=== PATIENT | male | born 1965 | race Caucasian/White ===

== ENCOUNTER 2023-01-02 06:05 | Inpatient (IN) | payer MEDICAID, OTHER ==
[~2023-01-02] VITALS: Ht 175.3 cm; Wt 81.6 kg
[2023-01-02 06:05] VITALS: BP 146/94
--- NOTE | 2023-01-02 06:10 | NUR ---
PT BIBA BLS TO ER BED 12.
--- NOTE | 2023-01-02 06:30 | NUR ---
Patient resting in bed, A/Ox4, chest rise and fall symmetrical, no s/s of distress.
[2023-01-02] MEDS ORDERED: NACL 0.9% 1,000 ML IV ONE (07:10)
[2023-01-02] MEDS ORDERED: PANTOPRAZOLE 40 MG INJ VIAL IVP ONE (07:10)
[2023-01-02] MEDS ORDERED: OCTREOTIDE ACETATE 100 MCG/ML VIAL IV ONE (07:10)
[2023-01-02] MEDS ORDERED: ONDANSETRON 4 MG/2 ML VIAL IVP ONE (07:10)
--- NOTE | 2023-01-02 07:26 | NUR ---
Change of shift report given to AM shift nurse Inderjit LE. AM shift nurse Inderjit RN verbalized understanding of report, no further questions.
[2023-01-02] MEDS ORDERED: OCTREOTIDE ACETATE 1.25 MG in NACL 0.9% 250 ML IV ONE (07:30)
--- NOTE | 2023-01-02 07:34 | NUR ---
RECEIVED PATIENT REPORT FROM REY CALIXTO FOR CONTINUITY OF CARE.
[2023-01-02] MEDS ORDERED: cefTRIAXone 1,000 MG VIAL ONE (07:38)
--- NOTE | 2023-01-02 07:45 | NUR ---
XR TECH AT BEDSIDE
[2023-01-02 08:14] LABS: BASOPHILS % (AUTO) 0.4 % (0.0-2.0); EOSINOPHILS % (AUTO) 0.9 % (0.0-4.0); HEMATOCRIT 24.7 % (36-52); HEMOGLOBIN 8.4 g/dL (12.0-18.0); LYMPHOCYTES # (AUTO) 0.3 K/uL (2.0-11.5); LYMPHOCYTES % (AUTO) 11.2 % (20.5-51.1); MEAN CORPUSCULAR HEMOGLOBIN 34 pg (27-31); MEAN CORPUSCULAR HGB CONC 34 g/dL (33-37); MEAN CORPUSCULAR VOLUME 100.7 fL (80-94); MONOCYTES # (AUTO) 0.3 K/uL (0.8-1.0); MONOCYTES % (AUTO) 9.4 % (1.7-9.3); NEUTROPHILS # (AUTO) 2.2 K/uL (1.8-7.7); NEUTROPHILS % (AUTO) 78.1 % (42.2-75.2); PLATELET COUNT (AUTO) 34 K/uL (140-450); RED BLOOD CELL COUNT(AUTO) 2.45 MIL/uL (4.20-6.10); RED CELL DISTRIBUTION WIDTH 16.2 % (11.6-13.7); WHITE BLOOD COUNT (AUTO) 2.9 K/uL (4.8-10.8)
[2023-01-02 08:17] LABS: PROTHROMBIN TIME 14.4 secs (10.8-13.4)
[2023-01-02 08:20] LABS: ALBUMIN 2.1 g/dL (3.4-5.0); ANION GAP 8.3 (8-16); CARBON DIOXIDE 26.4 mmol/L (21-32); CREATININE 0.8 mg/dL (0.6-1.3); POTASSIUM 4.7 mmol/L (3.5-5.1); TOTAL BILIRUBIN 3.1 mg/dL (0.0-1.0)
[2023-01-02 10:05] LABS: APPEARANCE,URINE CLEAR (CLEAR); BILIRUBIN,URINE NEGATIVE (NEGATIVE); BLOOD, URINE NEGATIVE (NEGATIVE); COLOR,URINE YELLOW (YELLOW); LEUKOCYTE ESTERASE ,URINE NEGATIVE (NEGATIVE); NITRITE, URINE NEGATIVE (NEGATIVE); UGLUCOSE NEGATIVE (NEGATIVE)
[2023-01-02 10:15] LABS: BARBITURATE, URINE NEGATIVE ng/ml (NEG <=200); BENZODIAZEPINE, URINE NEGATIVE ng/mL (NEG <=200)
[2023-01-02] MEDS ORDERED: ACETAMINOPHEN 325 MG TAB PO PRN (10:15)
[2023-01-02] MEDS ORDERED: MAG SULF 2000 MG/WATER PREMIX 50 ML IV PRN (10:15)
[2023-01-02] MEDS ORDERED: ONDANSETRON 4 MG/2 ML VIAL IVP PRN (10:15)
[2023-01-02] MEDS ORDERED: POTASSIUM CHLORIDE 10 MEQ TABER PO PRN (10:15)
[2023-01-02 10:16] LABS: CANNABINOID, URINE NEGATIVE ng/mL (NEG <=50); COCAINE, URINE POSITIVE ng/mL (NEG <=300); OPIATE, URINE NEGATIVE ng/mL (NEG <=2000); PHENCYCLIDINE SCREEN,URINE NEGATIVE ng/mL (NEG <=25)
[2023-01-02 10:58] LABS: CARBON DIOXIDE 24.9 mmol/L (21-32); POTASSIUM 4.6 mmol/L (3.5-5.1)
[2023-01-02 10:59] LABS: ANION GAP 6.7 (8-16); CREATININE 0.9 mg/dL (0.6-1.3)
[2023-01-02] MEDS: NACL 0.9% 1,000 ML IV SCH (10:59)
--- NOTE | 2023-01-02 10:59 | NUR ---
ALL SCHEDULED MEDS GIVEN. PT IS STABLE.
[2023-01-02 11:01] LABS: PROTHROMBIN TIME 14.9 secs (10.8-13.4)
[2023-01-02 11:32] LABS: AMYLASE 55 U/L (25-115); CHOL/HDL RATIO 2.1 (1-4.5); FREE T4 (FREE THYROXINE) 1.55 ng/dL (0.76-1.46); HDL CHOLESTEROL 33 mg/dL (40-60); LDL (CALC) 32 mg/dL (60-100); LIPASE 196 U/L (73-393); MAGNESIUM 1.6 mg/dL (1.8-2.4); PHOSPHORUS 2.6 mg/dL (2.5-4.9); TRIGLYCERIDES 18 mg/dL (30-150)
[2023-01-02] MEDS ORDERED: FURO-572 PO (11:42)
[2023-01-02] MEDS ORDERED: SPIR50TA PO (11:42)
--- NOTE | 2023-01-02 11:50 | NUR ---
ENDORSED PATIENT REPORT TO REY APPIAH FOR CONTINUITY OF CARE.
[2023-01-02 12:00] VITALS: BP 157/73
[2023-01-02] MEDS: HYDROcodone/APAP 7.5/325 MG 1 TAB PO PRN (14:21)
[2023-01-02 16:00] VITALS: BP 124/84
[2023-01-02] MEDS ORDERED: LACTULOSE 20 GM/30 ML UDC PO SCH (16:00)
--- NOTE | 2023-01-02 17:17 | NUR ---
ADMISSION OF A 57 YEAR OLD MALE UNDER THE CARE OF DOCTOR LUKE FOR GASTROINTESTINAL BLEEDING. PATIENT TO CONSULT BINGO ATTENDANT FOR FURTHER EVALUATION AND TREATMENT.
--- NOTE | 2023-01-02 17:51 | NUR ---
EDUCATION WITH PATIENT FIANCE AND PATIENT REGARDING DIAGNOSIS NEXT STEPS TO CONSULT SPECIALIST IN GASTROENTEROLOGY AND NOT MAKING BLEEDING WORSE BY TAKING FOOD TOO SOON. PATIENT ALSO WANTS PAIN MEDICATION. EDUCATION ABOUT 4 HOUR INTERVAL PRIOR TO NEXT PAIN MEDICATION. PATIENT AND FIANCE VERBALIZE UNDERSTANDING.
--- NOTE | 2023-01-02 19:29 | NUR ---
HANDOFF REPORT WITH REY GRIDER.
[2023-01-02 20:00] VITALS: BP 136/89
--- NOTE | 2023-01-02 21:20 | NUR ---
RECEIVED REPORT FROM NURSE GRIDER. PATIENT IN BED RESTING WITH BOTH EYES CLOSED ON ROOM AIR. NO S/S OF RESPIRATORY DISTRESS. BREATHING REGULAR NON LABORED. PATIENT ON SANDOSTATIN DRIP 125 MG IN NACL 0.9% 250 ML AT 10 ML/HR. SAFETY MEASURES IN PLACE. CALL LIGHT WITHIN REACH.
[2023-01-02] MEDS: LACTULOSE 20 GM/30 ML UDC PO SCH (21:46)
--- NOTE | 2023-01-02 21:46 | NUR ---
ADMINISTERED SCHEDULED DUE MEDICATIONS, TOLERATED WELL.
[2023-01-02] MEDS: DOCUSATE SODIUM 100 MG GELCAP PO SCH (21:47)
[2023-01-03 04:00] VITALS: BP 137/86
--- NOTE | 2023-01-03 05:05 | NUR ---
PER PATIENT HE HAD X3 BLOODY STOOL.
[2023-01-03] MEDS: NACL 0.9% 1,000 ML IV SCH (06:15)
--- NOTE | 2023-01-03 07:03 | NUR ---
receive the patient from the manager night rn in rm 112B aox4 with admitting diagnosis of GI bleed cirrhosis . still on NPO since midnight for EGD today . will continue to monitor
[2023-01-03 07:06] LABS: ANION GAP 10.3 (8-16); CARBON DIOXIDE 24.6 mmol/L (21-32); CREATININE 0.8 mg/dL (0.6-1.3); POTASSIUM 3.9 mmol/L (3.5-5.1)
[2023-01-03 07:07] LABS: BASOPHILS % (AUTO) 0.8 % (0.0-2.0); EOSINOPHILS # (AUTO) 0.1 K/uL (0-0.4); EOSINOPHILS % (AUTO) 3.8 % (0.0-4.0); HEMATOCRIT 23.8 % (36-52); HEMOGLOBIN 8.1 g/dL (12.0-18.0); LYMPHOCYTES # (AUTO) 0.4 K/uL (2.0-11.5); LYMPHOCYTES % (AUTO) 17.6 % (20.5-51.1); MEAN CORPUSCULAR HEMOGLOBIN 35 pg (27-31); MEAN CORPUSCULAR HGB CONC 34 g/dL (33-37); MEAN CORPUSCULAR VOLUME 101.6 fL (80-94); MONOCYTES # (AUTO) 0.2 K/uL (0.8-1.0); MONOCYTES % (AUTO) 8.5 % (1.7-9.3); NEUTROPHILS # (AUTO) 1.7 K/uL (1.8-7.7); NEUTROPHILS % (AUTO) 69.3 % (42.2-75.2); PLATELET COUNT (AUTO) 32 K/uL (140-450); RED BLOOD CELL COUNT(AUTO) 2.34 MIL/uL (4.20-6.10); RED CELL DISTRIBUTION WIDTH 16.4 % (11.6-13.7); WHITE BLOOD COUNT (AUTO) 2.5 K/uL (4.8-10.8)
[2023-01-03 07:19] LABS: MAGNESIUM 1.7 mg/dL (1.8-2.4); PHOSPHORUS 2.7 mg/dL (2.5-4.9)
--- NOTE | 2023-01-03 07:39 | NUR ---
GAVE REPORT TO MORNING SHIFT NURSE DAYNE FOR CONTINUITY OF CARE.
[2023-01-03 08:00] VITALS: BP 146/89
--- NOTE | 2023-01-03 08:45 | NUR ---
jigar sign the consent for EGD
[2023-01-03] MEDS ORDERED: FUROSEMIDE 20 MG TAB PO SCH (09:00)
[2023-01-03] MEDS ORDERED: LACTULOSE 20 GM/30 ML UDC PO SCH (09:00)
[2023-01-03] MEDS: PANTOPRAZOLE 40 MG INJ VIAL IVP SCH (10:26)
[2023-01-03] MEDS ORDERED: MIDAZOLAM 2 MG/2 ML VIAL ONE (11:06)
[2023-01-03] MEDS ORDERED: fentaNYL citrate 0.05 MG/ML VIAL ONE (11:06)
[2023-01-03] MEDS: MIDAZOLAM 2 MG/2 ML VIAL IVP ONE ×2 (11:37→12:09)
[2023-01-03] MEDS: fentaNYL citrate 0.05 MG/ML VIAL IVP ONE ×2 (11:38→12:07)
--- NOTE | 2023-01-03 11:45 | NUR ---
the patient went for EGD under md yeboah due to melena . md md yeboah did bands on 4 varices . hopefully this will stop rectal bleeding . patient hemoglobin 8.1
[2023-01-03] MEDS: SPIRONOLACTONE 50 MG TAB PO SCH (12:53)
[2023-01-03] MEDS: DOCUSATE SODIUM 100 MG GELCAP PO SCH ×2 (12:54→20:36)
[2023-01-03] MEDS: LACTULOSE 20 GM/30 ML UDC PO SCH ×3 (12:54→17:21)
[2023-01-03] MEDS: OCTREOTIDE ACETATE 1.25 MG in NACL 0.9% 250 ML IV SCH (14:25)
[2023-01-03 16:00] VITALS: BP 137/92
[2023-01-03] MEDS: FERROUS SULFATE 325 MG TABEC PO SCH (17:21)
--- NOTE | 2023-01-03 18:39 | NUR ---
will endorse to core carrier rn for continuity of care
[2023-01-03] MEDS: FUROSEMIDE 20 MG/2 ML VIAL IVP SCH (20:36)
--- NOTE | 2023-01-03 20:36 | NUR ---
ALL SCHEDULED DUE MEDICATIONS ADMINISTERED, TOLERATED WELL.
[2023-01-03] MEDS: PROPRANOLOL 20 MG TAB PO SCH (20:37)
--- NOTE | 2023-01-03 22:15 | NUR ---
PATIENT REFUSED SANDOSTATIN DRIP AND IVF. EXPLAINED THE RISK AND BENEFITS BUT STILL PATIENT REFUSED IT.
[2023-01-04] VITALS: BP 143/80
[2023-01-04] MEDS: NACL 0.9% 1,000 ML IV SCH (06:15)
[2023-01-04 07:11] LABS: MAGNESIUM 1.6 mg/dL (1.8-2.4); PHOSPHORUS 2.8 mg/dL (2.5-4.9)
[2023-01-04 07:14] LABS: ANION GAP 7.3 (8-16); CARBON DIOXIDE 28.5 mmol/L (21-32); CREATININE 0.9 mg/dL (0.6-1.3); POTASSIUM 3.8 mmol/L (3.5-5.1)
[2023-01-04 07:18] LABS: BASOPHILS % (AUTO) 0.7 % (0.0-2.0); EOSINOPHILS # (AUTO) 0.1 K/uL (0-0.4); EOSINOPHILS % (AUTO) 3.5 % (0.0-4.0); HEMATOCRIT 23.5 % (36-52); HEMOGLOBIN 8.1 g/dL (12.0-18.0); LYMPHOCYTES # (AUTO) 0.3 K/uL (2.0-11.5); LYMPHOCYTES % (AUTO) 10.2 % (20.5-51.1); MEAN CORPUSCULAR HEMOGLOBIN 35 pg (27-31); MEAN CORPUSCULAR HGB CONC 34 g/dL (33-37); MEAN CORPUSCULAR VOLUME 101.1 fL (80-94); MONOCYTES # (AUTO) 0.3 K/uL (0.8-1.0); MONOCYTES % (AUTO) 10.5 % (1.7-9.3); NEUTROPHILS % (AUTO) 75.1 % (42.2-75.2); PLATELET COUNT (AUTO) 34 K/uL (140-450); RED BLOOD CELL COUNT(AUTO) 2.33 MIL/uL (4.20-6.10); RED CELL DISTRIBUTION WIDTH 16.1 % (11.6-13.7); WHITE BLOOD COUNT (AUTO) 2.6 K/uL (4.8-10.8)
[2023-01-04 08:00] VITALS: BP 145/83
[2023-01-04] MEDS: FERROUS SULFATE 325 MG TABEC PO SCH ×2 (08:36→17:51)
[2023-01-04] MEDS: DOCUSATE SODIUM 100 MG GELCAP PO SCH ×2 (08:37→21:11)
[2023-01-04] MEDS: PROPRANOLOL 20 MG TAB PO SCH ×2 (08:38→21:11)
[2023-01-04] MEDS: SPIRONOLACTONE 50 MG TAB PO SCH (08:38)
[2023-01-04] MEDS: PANTOPRAZOLE 40 MG INJ VIAL IVP SCH (08:39)
[2023-01-04] MEDS: LACTULOSE 20 GM/30 ML UDC PO SCH ×3 (08:40→17:51)
[2023-01-04] MEDS: FUROSEMIDE 20 MG/2 ML VIAL IVP SCH ×2 (08:41→21:11)
--- NOTE | 2023-01-04 09:36 | NUR ---
PATIENT HAS BEEN SCREENED AND CATEGORIZED MODERATE NUTRITION RISK. PATIENT WILL BE SEEN WITHIN 3-5 DAYS OF ADMISSION. 01/02/23-01/07/[address]
[2023-01-04] MEDS: OCTREOTIDE ACETATE 1.25 MG in NACL 0.9% 250 ML IV SCH (12:00)
[2023-01-04 16:00] VITALS: BP 153/80
--- NOTE | 2023-01-04 19:15 | NUR ---
PATIENT RESTING IN BED, AAO x4, NO C/O PAIN/DISCOMFORT AT THIS TIME. RESPIRATIONS EVEN AND UL. ALL NEEDS MET. SAFETY MEASURES IN PLACE, CALL LIGHT IN REACH. ENDORSED TO PM NURSE FOR CONTINUITY OF CARE.
--- NOTE | 2023-01-04 19:30 | NUR ---
RECEIVED REPORT FROM DAY SHIFT NURSE FOR CONTINUITY OF CARE. PATIENT IS A&O X4. PATIENT IS ON ROOM AIR, BREATHING IS NORMAL WITH SYMMETRICAL RISE AND FALL OF CHEST. PATIENT'S IV IS A 20G RAC & 20G LAC, RUNNING OCTREOTIDE ACETATE IN NACL @ 10ML. PATIENT IS SLEEPING WITH COVERS PULLED UP OVER HEAD. BED IS IN LOWEST POSITION, WHEELS LOCKED, CALL LIGHT IN PLACE. WILL CONTINUE TO OBSERVE PATIENT.
[2023-01-04 20:00] VITALS: BP 132/96
--- NOTE | 2023-01-05 04:30 | NUR ---
PATIENT HAS BEEN SLEEPING THROUGHOUT THE NIGHT, LYING SEMI-FOWLERS. BREATHING IS NORMAL WITH SYMMETRICAL RISE AND FALL OF CHEST. WILL CONTINUE TO OBSERVE PATIENT.
[2023-01-05] MEDS: NACL 0.9% 1,000 ML IV SCH (06:15)
[2023-01-05 07:13] LABS: BASOPHILS % (AUTO) 0.9 % (0.0-2.0); EOSINOPHILS # (AUTO) 0.1 K/uL (0-0.4); EOSINOPHILS % (AUTO) 3.1 % (0.0-4.0); HEMOGLOBIN 8.2 g/dL (12.0-18.0); LYMPHOCYTES # (AUTO) 0.4 K/uL (2.0-11.5); MEAN CORPUSCULAR HEMOGLOBIN 35 pg (27-31); MEAN CORPUSCULAR HGB CONC 34 g/dL (33-37); MEAN CORPUSCULAR VOLUME 101.2 fL (80-94); MONOCYTES # (AUTO) 0.3 K/uL (0.8-1.0); MONOCYTES % (AUTO) 10.4 % (1.7-9.3); NEUTROPHILS # (AUTO) 1.9 K/uL (1.8-7.7); NEUTROPHILS % (AUTO) 71.6 % (42.2-75.2); PLATELET COUNT (AUTO) 38 K/uL (140-450); RED BLOOD CELL COUNT(AUTO) 2.37 MIL/uL (4.20-6.10); RED CELL DISTRIBUTION WIDTH 16.2 % (11.6-13.7); WHITE BLOOD COUNT (AUTO) 2.6 K/uL (4.8-10.8)
[2023-01-05 07:24] LABS: ANION GAP 9.6 (8-16); CARBON DIOXIDE 28.9 mmol/L (21-32); POTASSIUM 3.5 mmol/L (3.5-5.1)
[2023-01-05 07:29] LABS: MAGNESIUM 1.5 mg/dL (1.8-2.4)
--- NOTE | 2023-01-05 07:32 | NUR ---
ENDORSED TO DAY SHIFT NURSE ADZE FOR CONTINUITY OF CARE. PATIENT IS STABLE.
[2023-01-05 08:00] VITALS: BP 126/69
[2023-01-05] MEDS: FERROUS SULFATE 325 MG TABEC PO SCH ×2 (08:00→17:00)
[2023-01-05] MEDS: DOCUSATE SODIUM 100 MG GELCAP PO SCH (09:19)
[2023-01-05] MEDS: SPIRONOLACTONE 50 MG TAB PO SCH (09:19)
[2023-01-05] MEDS: PROPRANOLOL 20 MG TAB PO SCH ×2 (09:19→21:05)
[2023-01-05] MEDS: FUROSEMIDE 20 MG/2 ML VIAL IVP SCH ×2 (09:20→21:05)
[2023-01-05] MEDS: PANTOPRAZOLE 40 MG INJ VIAL IVP SCH (09:20)
[2023-01-05] MEDS: LACTULOSE 20 GM/30 ML UDC PO SCH ×3 (09:20→17:00)
[2023-01-05 16:00] VITALS: BP 121/80
--- NOTE | 2023-01-05 19:30 | NUR ---
RECEIVED REPORT FROM DAY SHIFT RN FOR CONTINUITY OF CARE. PT IS AWAKE AND ALERT. PT NOT IN ANY DISTRESS. PT IS AMBULATORY WITH STEADY GATE. PT HAS RIGHT AND LEFT AC 20 GAUGE. SALINE LOCK. POC OF CARE DISCUSSED. WILL CONTINUE TO MONITOR THE PT.
[2023-01-05 20:00] VITALS: BP 130/73
--- NOTE | 2023-01-05 21:05 | NUR ---
SCHEDULE MEDICATIONS GIVEN. NO ADVERSE REACTION NOTED. WILL CONTINUE TO MONITOR THE PT.
[2023-01-05] MEDS: HYDROcodone/APAP 7.5/325 MG 1 TAB PO PRN (23:33)
--- NOTE | 2023-01-06 01:56 | NUR ---
PT SLEEPING IN BED NOT IN ANY DISTRESS. BREATHING EVEN AND UNLABORED. CALL LIGHT WITHIN REACH.
--- NOTE | 2023-01-06 05:15 | NUR ---
CHECKED ON PT. PT IS SLEEPING COMFORTABLE IN BED. PT IS NOT IN ANY DISTRESS. BREATHING EVEN AND UNLABORED. WILL CONTINUE TO MONITOR THE PT.
--- NOTE | 2023-01-06 07:08 | NUR ---
ENDORSED PT TO DAY SHIFT RN FOR CONTINUITY OF CARE. PT IS STABLE.
[2023-01-06 07:38] LABS: BASOPHILS % (AUTO) 0.8 % (0.0-2.0); EOSINOPHILS # (AUTO) 0.1 K/uL (0-0.4); HEMATOCRIT 22.5 % (36-52); HEMOGLOBIN 7.8 g/dL (12.0-18.0); LYMPHOCYTES # (AUTO) 0.4 K/uL (2.0-11.5); LYMPHOCYTES % (AUTO) 16.5 % (20.5-51.1); MEAN CORPUSCULAR HEMOGLOBIN 35 pg (27-31); MEAN CORPUSCULAR HGB CONC 35 g/dL (33-37); MEAN CORPUSCULAR VOLUME 100.4 fL (80-94); MONOCYTES # (AUTO) 0.3 K/uL (0.8-1.0); MONOCYTES % (AUTO) 13.2 % (1.7-9.3); NEUTROPHILS # (AUTO) 1.6 K/uL (1.8-7.7); NEUTROPHILS % (AUTO) 65.5 % (42.2-75.2); PLATELET COUNT (AUTO) 39 K/uL (140-450); RED BLOOD CELL COUNT(AUTO) 2.24 MIL/uL (4.20-6.10); RED CELL DISTRIBUTION WIDTH 16.6 % (11.6-13.7); WHITE BLOOD COUNT (AUTO) 2.5 K/uL (4.8-10.8)
[2023-01-06 07:47] LABS: ANION GAP 7.9 (8-16); CARBON DIOXIDE 27.6 mmol/L (21-32); CREATININE 0.9 mg/dL (0.6-1.3); POTASSIUM 3.5 mmol/L (3.5-5.1)
[2023-01-06 08:00] VITALS: BP 109/65
[2023-01-06 08:06] LABS: MAGNESIUM 1.5 mg/dL (1.8-2.4); PHOSPHORUS 2.3 mg/dL (2.5-4.9)
[2023-01-06] MEDS: FUROSEMIDE 20 MG/2 ML VIAL IVP SCH ×2 (08:53→20:24)
[2023-01-06] MEDS: LACTULOSE 20 GM/30 ML UDC PO SCH ×3 (08:53→17:00)
[2023-01-06] MEDS: PANTOPRAZOLE 40 MG INJ VIAL IVP SCH (08:53)
[2023-01-06] MEDS: PROPRANOLOL 20 MG TAB PO SCH ×2 (08:53→20:23)
[2023-01-06] MEDS: FERROUS SULFATE 325 MG TABEC PO SCH ×2 (08:54→17:00)
[2023-01-06] MEDS: SPIRONOLACTONE 50 MG TAB PO SCH (08:54)
--- NOTE | 2023-01-06 15:15 | NUR ---
01/06/23 RD INITIAL ASSESSMENT COMPLETED PLEASE REFER TO NUTRITION ASSESSMENT UNDER CARE ACTIVITY FOR ESTIMATED NUTRITIONAL NEEDS. 1. RECOMMEND NA2GM DIET TOLERATED D/T PT WITH ASCITES 2. MONITOR PO INTAKE AND NUTRITION RELATED LAB VALUES 3. RD TO FOLLOW-UP 7 DAYS, LOW RISK REVIEWED BY MICHAEL RIZVI RD
[2023-01-06 16:00] VITALS: BP 96/55
--- NOTE | 2023-01-06 19:20 | NUR ---
RECEIVED PT FROM DAY RN FOR CONTINUITY OF CARE. PT STANDING BESIDE HIS BED, A&O X 4, ON ROOM AIR, BREATHING EVEN AND UNLABORED. NO RESPIRATORY DISTRESS NOTED. FAMILY AT BEDSIDE. SKIN WARM DRY AND INTACT. ABDOMEN DISTENDED. IV ON R AND L AC G20,SL. ALL PRECAUTIONS IN PLACE. CALL LIGHT WITHIN REACH. WILL CONTINUE TO MONITOR.
--- NOTE | 2023-01-06 19:28 | NUR ---
PATIENT SCHEDULED FOR PARACENTESIS TODAY BUT UNABLE TO HAVE THE PROCEDURE DONE DUE TO PLATELET WAS NOT AVAILABLE. PER RADIOLOGIST PARACENTESIS WILL BE DONE TOMORROW. PATIENT AGREEABLE. STABLE AT THIS TIME.
[2023-01-06] MEDS: HYDROcodone/APAP 7.5/325 MG 1 TAB PO PRN (20:23)
--- NOTE | 2023-01-06 20:29 | NUR ---
SCHEDULED MEDICATIONS GIVEN. NO ADVERSE REACTION NOTED.PROPANALOL NOT GIVEN DUE TO LOW BP. WILL CONTINUE TO MONITOR THE PT.
--- NOTE | 2023-01-06 23:18 | NUR ---
PT IS SLEEPING COMFORTABLY IN BED. PT IS NOT IN ANY DISTRESS. BREATHING EVEN AND UNLABORED. WILL CONTINUE TO MONITOR THE PT.
[2023-01-07] VITALS: BP 93/66
[2023-01-07] MEDS ORDERED: LANSOPRAZOLE 30 MG CAPDR PO SCH (06:30)
--- NOTE | 2023-01-07 07:04 | NUR ---
PT IS STABLE. NO ACUTE EVENTS THROUGHOUT THE NIGHT.NO S/SX OF DISTRESS NOTED. ALL NEEDS ATTENDED. NO COMPLAINS AT THIS MOMENT.ALL PRECAUTIONS IN PLACE. CALL LIGHT WITHIN REACH. WILL ENDORSE TO DAY SHIFT RN.
[2023-01-07 07:28] LABS: BASOPHILS % (AUTO) 0.6 % (0.0-2.0); EOSINOPHILS # (AUTO) 0.1 K/uL (0-0.4); HEMATOCRIT 22.3 % (36-52); HEMOGLOBIN 7.7 g/dL (12.0-18.0); LYMPHOCYTES # (AUTO) 0.4 K/uL (2.0-11.5); LYMPHOCYTES % (AUTO) 13.2 % (20.5-51.1); MEAN CORPUSCULAR HEMOGLOBIN 35 pg (27-31); MEAN CORPUSCULAR HGB CONC 35 g/dL (33-37); MEAN CORPUSCULAR VOLUME 101.8 fL (80-94); MONOCYTES # (AUTO) 0.4 K/uL (0.8-1.0); MONOCYTES % (AUTO) 15.3 % (1.7-9.3); NEUTROPHILS # (AUTO) 1.9 K/uL (1.8-7.7); NEUTROPHILS % (AUTO) 66.9 % (42.2-75.2); PLATELET COUNT (AUTO) 42 K/uL (140-450); RED BLOOD CELL COUNT(AUTO) 2.19 MIL/uL (4.20-6.10); RED CELL DISTRIBUTION WIDTH 16.9 % (11.6-13.7); WHITE BLOOD COUNT (AUTO) 2.9 K/uL (4.8-10.8)
[2023-01-07 07:36] LABS: ANION GAP 8.9 (8-16); CARBON DIOXIDE 27.7 mmol/L (21-32); POTASSIUM 3.6 mmol/L (3.5-5.1)
[2023-01-07 07:56] LABS: MAGNESIUM 1.6 mg/dL (1.8-2.4); PHOSPHORUS 2.9 mg/dL (2.5-4.9)
[2023-01-07 08:00] VITALS: BP 93/66
[2023-01-07] MEDS: LACTULOSE 20 GM/30 ML UDC PO SCH ×2 (09:00→13:00)
[2023-01-07] MEDS: SPIRONOLACTONE 50 MG TAB PO SCH (10:38)
[2023-01-07] MEDS: FUROSEMIDE 20 MG/2 ML VIAL IVP SCH (10:38)
[2023-01-07] MEDS: PROPRANOLOL 20 MG TAB PO SCH (10:38)
[2023-01-07] MEDS: FERROUS SULFATE 325 MG TABEC PO SCH (10:39)
[2023-01-07] MEDS ORDERED: ALBUMIN HUMAN 25% 100 ML IV SCH (12:00)
[2023-01-07] MEDS ORDERED: PROPRANOLOL 20 MG TAB PO SCH (13:00)
--- NOTE | 2023-01-07 15:13 | NUR ---
DC PLANNING ASSESSMENT COMPLETE SEE ASSESSMENT FOR DETAILS PT REPORTS TENTATIVE DC PLAN TO RETURN HOME WITH KATHERINE GARZAASHIA SUE, PROVIDING TRANSPORTATION, WHEN MEDICALLY STABLE. Addendum: 01/07/23 at 1514 by Cristy Duarte SS Amended: Links added.
[2023-01-07] MEDS ORDERED: LANS30EC68 PO (15:37)
[2023-01-07] MEDS ORDERED: FER325 PO (15:37)
[2023-01-07] MEDS ORDERED: FURO40TA9 PO (15:37)
[2023-01-07] MEDS ORDERED: LACT10SO11 PO (15:37)
[2023-01-07] MEDS ORDERED: SPIR50TA PO (15:37)
[2023-01-07] MEDS ORDERED: PROP20TA29 PO (15:37)
[2023-01-07 16:08] VITALS: BP 110/78
--- NOTE | 2023-01-07 17:30 | NUR ---
PATIENT DISCHARGED HOME. STABLE UPON DISCHARGE.
[2023-01-08] MEDS ORDERED: FUROSEMIDE 40 MG TAB PO SCH (09:00)
[2023-01-09 03:33] LABS: ALBUMIN,BODY FLUID 0.3 g/dL
== END 2023-01-07 17:40 | disposition home or self-care (01) | DRG 280 ==
LOC: MED 06:05 → MTU 10:15
PROC: 06L38CZ Occlusion of Esophageal Vein with Extraluminal Device, Via Natural or Artificial Opening Endoscopic (ICD-10-PCS; principal; 2023-01-03 11:00)
PROC: 0W9G3ZZ Drainage of Peritoneal Cavity, Percutaneous Approach (ICD-10-PCS; 2023-01-07)
PROC: BW40ZZZ Ultrasonography of Abdomen (ICD-10-PCS; 2023-01-07)
PROC: 30233R1 Transfusion of Nonautologous Platelets into Peripheral Vein, Percutaneous Approach (ICD-10-PCS; 2023-01-07)
DX: K70.31 Alcoholic cirrhosis of liver with ascites (principal); E43 Unspecified severe protein-calorie malnutrition; J90 Pleural effusion, not elsewhere classified; K76.82 Hepatic encephalopathy; I85.10 Secondary esophageal varices without bleeding; D63.8 Anemia in other chronic diseases classified elsewhere; K76.6 Portal hypertension; K92.0 Hematemesis; E83.42 Hypomagnesemia; Z68.26 Body mass index [BMI] 26.0-26.9, adult; F19.10 Other psychoactive substance abuse, uncomplicated; Z20.822 Contact with and (suspected) exposure to COVID-19; B19.20 Unspecified viral hepatitis C without hepatic coma; K92.2 Gastrointestinal hemorrhage, unspecified; K31.89 Other diseases of stomach and duodenum; Z91.199 Patient's noncompliance with other medical treatment and regimen due to unspecified reason; Z59.7 Insufficient social insurance and welfare support
CPT/HCPCS: 36415; 49083; 71045; 76604; 76700; 80048; 80053; 80305; 81003; 82105; 82140; 82150; 83036; 83605; 83690; 83735; 83880; 84100; 84439; 84443; 84484; 85025; 85610; 85730; 86886; 86900; 86901; 87040; 87070; 87075; 87081; 87205; 93005; 96374; 96375; 99291; C9113; J0696; J1940; J2001; J2250; J2354; J2405; J3010; J3475; J7030; P9035; P9046; Q0092

== ENCOUNTER 2023-01-23 16:51 | Emergency (ER) | payer MEDICAID ==
[~2023-01-23] VITALS: Ht 172.7 cm; Wt 75.3 kg
[~2023-01-23 16:51] MED LIST: FER325 PO; FURO-572 PO; FURO40TA9 PO; LACT10SO11 PO; LANS30EC68 PO; PROP20TA29 PO; SPIR50TA PO
[2023-01-23 17:06] VITALS: BP 145/67
--- NOTE | 2023-01-23 17:47 | NUR ---
PT WC ASSISTED TO BED 1
== END 2023-01-23 19:01 | disposition home or self-care (01) ==
LOC: MED 16:51
DX: K70.31 Alcoholic cirrhosis of liver with ascites (principal); E11.9 Type 2 diabetes mellitus without complications; I10 Essential (primary) hypertension; Z79.899 Other long term (current) drug therapy
CPT/HCPCS: 99281

== ENCOUNTER 2023-01-27 11:52 | Inpatient (IN) | payer MEDICAID ==
[~2023-01-27] VITALS: Ht 175.3 cm; Wt 88.5 kg
[2023-01-27 12:14] VITALS: BP 138/78
[2023-01-27 17:13] LABS: BASOPHILS % (AUTO) 0.4 % (0.0-2.0); EOSINOPHILS # (AUTO) 0.1 K/uL (0-0.4); HEMATOCRIT 29.3 % (36-52); HEMOGLOBIN 9.7 g/dL (12.0-18.0); LYMPHOCYTES # (AUTO) 0.3 K/uL (2.0-11.5); LYMPHOCYTES % (AUTO) 10.5 % (20.5-51.1); MEAN CORPUSCULAR HEMOGLOBIN 32 pg (27-31); MEAN CORPUSCULAR HGB CONC 33 g/dL (33-37); MEAN CORPUSCULAR VOLUME 97.8 fL (80-94); MONOCYTES # (AUTO) 0.2 K/uL (0.8-1.0); NEUTROPHILS # (AUTO) 2.1 K/uL (1.8-7.7); NEUTROPHILS % (AUTO) 79.1 % (42.2-75.2); PLATELET COUNT (AUTO) 36 K/uL (140-450); RED BLOOD CELL COUNT(AUTO) 2.99 MIL/uL (4.20-6.10); WHITE BLOOD COUNT (AUTO) 2.6 K/uL (4.8-10.8)
[2023-01-27 17:39] LABS: ALBUMIN 2.3 g/dL (3.4-5.0); ANION GAP 5.5 (8-16); CARBON DIOXIDE 28.2 mmol/L (21-32); CREATININE 0.8 mg/dL (0.6-1.3); POTASSIUM 3.7 mmol/L (3.5-5.1); TOTAL BILIRUBIN 2.7 mg/dL (0.0-1.0)
[2023-01-27] MEDS ORDERED: DOCUSATE SODIUM 100 MG GELCAP PO PRN (18:55)
[2023-01-27] MEDS ORDERED: ACETAMINOPHEN 325 MG TAB PO PRN (18:55)
[2023-01-27] MEDS ORDERED: POTASSIUM CHLORIDE 10 MEQ TABER PO PRN (18:55)
[2023-01-27] MEDS ORDERED: LORazepam 2 MG/ML VIAL IVP PRN (18:55)
[2023-01-27] MEDS ORDERED: MORPHINE SULFATE 2 MG/ML SYR IVP PRN (18:55)
[2023-01-27] MEDS ORDERED: MAG SULF 2000 MG/WATER PREMIX 50 ML IV PRN (18:55)
[2023-01-27] MEDS ORDERED: ONDANSETRON 4 MG/2 ML VIAL IVP PRN (18:55)
[2023-01-27 19:12] LABS: APPEARANCE,URINE CLEAR (CLEAR); BILIRUBIN,URINE 1+ (NEGATIVE); BLOOD, URINE TRACE-I (NEGATIVE); COLOR,URINE YELLOW (YELLOW); LEUKOCYTE ESTERASE ,URINE NEGATIVE (NEGATIVE); NITRITE, URINE NEGATIVE (NEGATIVE); UGLUCOSE NEGATIVE (NEGATIVE)
[2023-01-27 19:26] LABS: RBC,URINE 0-5 /HPF (0-5); WBC,URINE 0-5 /HPF (0-5)
[2023-01-28] VITALS: BP 138/91
[2023-01-28] MEDS: ZOLPIDEM 10 MG TAB PO PRN (01:13)
[2023-01-28 05:58] LABS: BASOPHILS % (AUTO) 0.4 % (0.0-2.0); EOSINOPHILS # (AUTO) 0.1 K/uL (0-0.4); EOSINOPHILS % (AUTO) 2.4 % (0.0-4.0); HEMATOCRIT 27.6 % (36-52); HEMOGLOBIN 9.3 g/dL (12.0-18.0); LYMPHOCYTES # (AUTO) 0.3 K/uL (2.0-11.5); LYMPHOCYTES % (AUTO) 12.1 % (20.5-51.1); MEAN CORPUSCULAR HEMOGLOBIN 33 pg (27-31); MEAN CORPUSCULAR HGB CONC 34 g/dL (33-37); MEAN CORPUSCULAR VOLUME 97.2 fL (80-94); MONOCYTES # (AUTO) 0.2 K/uL (0.8-1.0); MONOCYTES % (AUTO) 9.4 % (1.7-9.3); NEUTROPHILS % (AUTO) 75.7 % (42.2-75.2); PLATELET COUNT (AUTO) 33 K/uL (140-450); RED BLOOD CELL COUNT(AUTO) 2.84 MIL/uL (4.20-6.10); RED CELL DISTRIBUTION WIDTH 14.9 % (11.6-13.7); WHITE BLOOD COUNT (AUTO) 2.6 K/uL (4.8-10.8)
[2023-01-28 06:00] VITALS: BP 130/79
[2023-01-28 06:04] LABS: ANION GAP 7.9 (8-16); CARBON DIOXIDE 23.9 mmol/L (21-32); CREATININE 0.7 mg/dL (0.6-1.3); POTASSIUM 3.8 mmol/L (3.5-5.1)
[2023-01-28] MEDS ORDERED: DEXTROSE 50% 50 ML SYR IVP PRN (07:40)
[2023-01-28] MEDS ORDERED: INSULIN LISPRO SLIDING SCALE 100 UNITS/ML VIAL SUBQ PRN (07:40)
[2023-01-28 08:00] VITALS: BP 115/81
[2023-01-28] MEDS: FERROUS SULFATE 325 MG TABEC PO SCH ×2 (08:43→17:56)
[2023-01-28] MEDS: SPIRONOLACTONE 50 MG TAB PO SCH (08:45)
[2023-01-28] MEDS: LACTULOSE 20 GM/30 ML UDC PO SCH ×3 (08:46→17:56)
[2023-01-28] MEDS: FUROSEMIDE 40 MG TAB PO SCH (08:46)
[2023-01-28] MEDS: PROPRANOLOL 20 MG TAB PO SCH ×3 (08:48→17:57)
[2023-01-28 12:00] VITALS: BP 141/96
[2023-01-28] MEDS: BLOOD GLUCOSE MONITORING 1 DEV DEV FS SCH ×3 (12:12→21:20)
[2023-01-28 12:50] LABS: PROTHROMBIN TIME 13.3 secs (10.8-13.4)
[2023-01-28 16:00] VITALS: BP 131/90
[2023-01-28 20:00] VITALS: BP 118/77
[2023-01-29] VITALS (7 sets, daily range): BP systolic 112–151; BP diastolic 64–92
[2023-01-29 05:22] LABS: BASOPHILS % (AUTO) 0.5 % (0.0-2.0); EOSINOPHILS # (AUTO) 0.1 K/uL (0-0.4); EOSINOPHILS % (AUTO) 3.4 % (0.0-4.0); HEMATOCRIT 27.2 % (36-52); HEMOGLOBIN 9.3 g/dL (12.0-18.0); LYMPHOCYTES # (AUTO) 0.4 K/uL (2.0-11.5); LYMPHOCYTES % (AUTO) 11.8 % (20.5-51.1); MEAN CORPUSCULAR HEMOGLOBIN 33 pg (27-31); MEAN CORPUSCULAR HGB CONC 34 g/dL (33-37); MEAN CORPUSCULAR VOLUME 96.4 fL (80-94); MONOCYTES # (AUTO) 0.4 K/uL (0.8-1.0); MONOCYTES % (AUTO) 11.8 % (1.7-9.3); NEUTROPHILS # (AUTO) 2.5 K/uL (1.8-7.7); NEUTROPHILS % (AUTO) 72.5 % (42.2-75.2); PLATELET COUNT (AUTO) 39 K/uL (140-450); RED BLOOD CELL COUNT(AUTO) 2.82 MIL/uL (4.20-6.10); RED CELL DISTRIBUTION WIDTH 14.8 % (11.6-13.7); WHITE BLOOD COUNT (AUTO) 3.5 K/uL (4.8-10.8)
[2023-01-29 05:35] LABS: ANION GAP 6.6 (8-16); CARBON DIOXIDE 26.3 mmol/L (21-32); CREATININE 0.8 mg/dL (0.6-1.3); POTASSIUM 3.9 mmol/L (3.5-5.1)
[2023-01-29] MEDS: BLOOD GLUCOSE MONITORING 1 DEV DEV FS SCH ×2 (07:30→11:40)
[2023-01-29] MEDS: PROPRANOLOL 20 MG TAB PO SCH ×3 (08:57→17:37)
[2023-01-29] MEDS: FUROSEMIDE 40 MG TAB PO SCH (08:58)
[2023-01-29] MEDS: LACTULOSE 20 GM/30 ML UDC PO SCH ×3 (08:58→17:00)
[2023-01-29] MEDS: FERROUS SULFATE 325 MG TABEC PO SCH ×2 (08:58→17:37)
[2023-01-29] MEDS: SPIRONOLACTONE 50 MG TAB PO SCH (08:58)
[2023-01-29] MEDS ORDERED: LIDOCAINE MPF 1% 5 ML ONE (13:56)
[2023-01-29] MEDS: FUROSEMIDE 20 MG/2 ML VIAL IVP SCH (20:07)
[2023-01-29 20:29] LABS: APPEARANCE,SPUN,BODY FLUID HAZY (CLEAR); APPEARANCE,UNSPUN,BODY FLUID CLOUDY (CLEAR); SPECIMENTYPE,BODY FLUID ASCITES
[2023-01-29 20:30] LABS: COLOR,BODY FLUID YELLOW (LT YELLOW); GLUCOSE,BODY FLUID 118 mg/dL; TOTAL VOLUME,BODY FLUID 3375 mL
[2023-01-29 20:44] LABS: WBC, BODY FLUID 2 /cu. mm.
[2023-01-29 21:18] LABS: RBC, BODY FLUID 288 /cu. mm.
[2023-01-29] MEDS: ZOLPIDEM 10 MG TAB PO PRN (21:29)
[2023-01-30] VITALS: BP 121/67
[2023-01-30 04:00] VITALS: BP 101/68
[2023-01-30 05:12] LABS: BASOPHILS % (AUTO) 0.3 % (0.0-2.0); EOSINOPHILS # (AUTO) 0.1 K/uL (0-0.4); EOSINOPHILS % (AUTO) 2.8 % (0.0-4.0); HEMATOCRIT 28.9 % (36-52); HEMOGLOBIN 9.8 g/dL (12.0-18.0); LYMPHOCYTES # (AUTO) 0.4 K/uL (2.0-11.5); LYMPHOCYTES % (AUTO) 9.4 % (20.5-51.1); MEAN CORPUSCULAR HEMOGLOBIN 32 pg (27-31); MEAN CORPUSCULAR HGB CONC 34 g/dL (33-37); MEAN CORPUSCULAR VOLUME 95.5 fL (80-94); MONOCYTES # (AUTO) 0.6 K/uL (0.8-1.0); MONOCYTES % (AUTO) 13.8 % (1.7-9.3); NEUTROPHILS # (AUTO) 3.4 K/uL (1.8-7.7); NEUTROPHILS % (AUTO) 73.7 % (42.2-75.2); PLATELET COUNT (AUTO) 55 K/uL (140-450); RED BLOOD CELL COUNT(AUTO) 3.03 MIL/uL (4.20-6.10); WHITE BLOOD COUNT (AUTO) 4.7 K/uL (4.8-10.8)
[2023-01-30 06:01] LABS: ANION GAP 7.9 (8-16); CARBON DIOXIDE 26.7 mmol/L (21-32); CREATININE 0.9 mg/dL (0.6-1.3); POTASSIUM 3.6 mmol/L (3.5-5.1)
[2023-01-30 08:00] VITALS: BP 107/67
[2023-01-30] MEDS: FERROUS SULFATE 325 MG TABEC PO SCH (08:31)
[2023-01-30] MEDS: SPIRONOLACTONE 50 MG TAB PO SCH (08:32)
[2023-01-30] MEDS: FUROSEMIDE 20 MG/2 ML VIAL IVP SCH (08:33)
[2023-01-30] MEDS: PROPRANOLOL 20 MG TAB PO SCH (08:33)
[2023-01-30] MEDS: LACTULOSE 20 GM/30 ML UDC PO SCH (08:33)
[2023-01-30] MEDS ORDERED: FURO-572 PO (09:26)
[2023-01-30] MEDS ORDERED: LACT10SO11 PO (09:26)
[2023-01-30] MEDS ORDERED: LIDOCAINE 1% 500 MG/ 50 ML VIAL INJ ONE (11:00)
== END 2023-01-30 10:54 | disposition home or self-care (01) | DRG 280 ==
LOC: MED 11:52 → MTU 18:54
PROVIDERS: ADMIT Family Medicine; ATTEND Family Medicine
PROC: 0W9G3ZZ Drainage of Peritoneal Cavity, Percutaneous Approach (ICD-10-PCS; principal; 2023-01-29)
PROC: 30233R1 Transfusion of Nonautologous Platelets into Peripheral Vein, Percutaneous Approach (ICD-10-PCS; 2023-01-29)
DX: K70.31 Alcoholic cirrhosis of liver with ascites (principal); E43 Unspecified severe protein-calorie malnutrition; D61.818 Other pancytopenia; K76.6 Portal hypertension; D63.8 Anemia in other chronic diseases classified elsewhere; B19.20 Unspecified viral hepatitis C without hepatic coma; D53.9 Nutritional anemia, unspecified; E11.9 Type 2 diabetes mellitus without complications; I10 Essential (primary) hypertension; Z20.822 Contact with and (suspected) exposure to COVID-19; Z68.28 Body mass index [BMI] 28.0-28.9, adult
CPT/HCPCS: 36415; 49083; 76700; 80048; 80053; 81001; 82945; 82948; 83690; 83735; 84157; 85025; 85610; 85730; 86886; 86900; 86901; 87070; 87075; 87081; 87205; 89051; 99285; J1815; J1940; J2001; P9035; Q0092

== ENCOUNTER 2023-02-22 17:56 | Emergency (ER) | payer MEDICAID ==
[~2023-02-22] VITALS: Ht 175.3 cm; Wt 72.6 kg
--- NOTE | 2023-02-22 17:58 | NUR ---
PT BIBA TO BED 11
[2023-02-22 18:01] VITALS: BP 145/88
--- NOTE | 2023-02-22 18:30 | NUR ---
DR ROSARIO AT BEDSIDE FOR PARACENTESIS
--- NOTE | 2023-02-22 19:00 | NUR ---
RESTING IN BED, EXAM BY DR ROSARIO. AWARE OF PARACENTESIS PROCEDURE
--- NOTE | 2023-02-22 19:20 | NUR ---
Pt resting in bed at this time, paracentesis on going. No c/o discomfort.
--- NOTE | 2023-02-22 20:40 | NUR ---
Pt c/o lower abdominal and pelvic pain. Dr. Rodas made aware.
[2023-02-22] MEDS ORDERED: KETOROLAC 60 MG/2 ML VIAL IM ONE (20:50)
--- NOTE | 2023-02-22 21:13 | NUR ---
Dr. Rodas by bedside reevaluating patient, ended paracentesis. 5.1 liters output.
[2023-02-22 21:19] VITALS: BP 131/78
--- NOTE | 2023-02-22 21:20 | NUR ---
Patient discharged with v/s stable. Written and verbal after care instructions given and explained. Patient verbalized understanding. Ambulatory with steady gait. All questions addressed prior to discharge. Advised to follow up with PMD.
== END 2023-02-22 21:19 | disposition home or self-care (01) ==
LOC: MED 17:56
DX: R18.8 Other ascites (principal); R06.02 Shortness of breath; E11.9 Type 2 diabetes mellitus without complications; I10 Essential (primary) hypertension; F17.200 Nicotine dependence, unspecified, uncomplicated; Z79.899 Other long term (current) drug therapy
CPT/HCPCS: 49083; 96372; 99285; J1885

== ENCOUNTER 2023-03-24 12:41 | Inpatient (IN) | payer MEDICAID ==
[~2023-03-24] VITALS: Ht 170.2 cm; Wt 82.6 kg
[2023-03-24 12:52] VITALS: BP 130/85
--- NOTE | 2023-03-24 12:55 | NUR ---
pt to bed 1
[2023-03-24 14:06] LABS: BASOPHILS % (AUTO) 0.5 % (0.0-2.0); EOSINOPHILS % (AUTO) 1.6 % (0.0-4.0); HEMOGLOBIN 10.7 g/dL (12.0-18.0); LYMPHOCYTES # (AUTO) 0.3 K/uL (2.0-11.5); LYMPHOCYTES % (AUTO) 9.2 % (20.5-51.1); MEAN CORPUSCULAR HEMOGLOBIN 31 pg (27-31); MEAN CORPUSCULAR HGB CONC 33 g/dL (33-37); MEAN CORPUSCULAR VOLUME 92.6 fL (80-94); MONOCYTES # (AUTO) 0.2 K/uL (0.8-1.0); MONOCYTES % (AUTO) 8.2 % (1.7-9.3); NEUTROPHILS # (AUTO) 2.2 K/uL (1.8-7.7); NEUTROPHILS % (AUTO) 80.5 % (42.2-75.2); PLATELET COUNT (AUTO) 29 K/uL (140-450); RED BLOOD CELL COUNT(AUTO) 3.46 MIL/uL (4.20-6.10); WHITE BLOOD COUNT (AUTO) 2.7 K/uL (4.8-10.8)
[2023-03-24 14:23] LABS: ALBUMIN 1.7 g/dL (3.4-5.0); CARBON DIOXIDE 26.8 mmol/L (21-32); CREATININE 0.8 mg/dL (0.6-1.3); POTASSIUM 3.8 mmol/L (3.5-5.1); TOTAL BILIRUBIN 2.1 mg/dL (0.0-1.0)
[2023-03-24 15:19] LABS: APPEARANCE,URINE CLEAR (CLEAR); BILIRUBIN,URINE NEGATIVE (NEGATIVE); BLOOD, URINE TRACE-I (NEGATIVE); COLOR,URINE YELLOW (YELLOW); LEUKOCYTE ESTERASE ,URINE NEGATIVE (NEGATIVE); NITRITE, URINE NEGATIVE (NEGATIVE); UGLUCOSE NEGATIVE (NEGATIVE)
[2023-03-24 15:32] LABS: CALCIUM OXALATE CRYSTALS,UR 0-10 /HPF (None Seen); WBC,URINE 0-5 /HPF (0-5)
[2023-03-24] MEDS ORDERED: GABA100C PO (16:02)
--- NOTE | 2023-03-24 17:05 | NUR ---
ADMITTED FROM ER VIA WHEELCHAIR. A & O X4. SPEECH CLEAR. NO SOB, NOTED. SKIN WARM, DRY, AND INTACT. ABDOMINAL DISTENTION (ASCITES) NOTED. KEEP COMFORTABLE ON BED. EXPLAINED DIAGNOSIS, PLAN OF CARE, PAIN MANAGEMENT TEACHING, USE OF CALL LIGHT/BED/TV/BATHROOM. VERBALIZED UNDERSTANDING. CALL LIGHT WITHIN REACH.
[2023-03-24 17:15] VITALS: BP 139/81
[2023-03-24] MEDS ORDERED: HYDROcodone/APAP 7.5/325 MG 1 TAB PO PRN (17:30)
[2023-03-24] MEDS ORDERED: ZOLPIDEM 5 MG TAB PO PRN (17:30)
[2023-03-24] MEDS ORDERED: ACETAMINOPHEN 325 MG TAB PO PRN (17:30)
[2023-03-24] MEDS ORDERED: guaiFENesin DM 200/20 MG-10 ML 10 ML UDC PO PRN (17:30)
[2023-03-24] MEDS ORDERED: DOCUSATE SODIUM 100 MG GELCAP PO PRN (17:30)
[2023-03-24] MEDS ORDERED: ONDANSETRON 4 MG/2 ML VIAL IM/IVP PRN (17:30)
[2023-03-24] MEDS ORDERED: POTASSIUM CHLORIDE 10 MEQ TABER PO PRN (17:30)
[2023-03-24 18:09] LABS: CHOL/HDL RATIO 1.9 (1-4.5); FREE T4 (FREE THYROXINE) 1.36 ng/dL (0.76-1.46); MAGNESIUM 1.7 mg/dL (1.8-2.4); PHOSPHORUS 2.6 mg/dL (2.5-4.9); THYROID STIMULATING HORMONE 3.01 uIU/mL (0.34-3.74)
[2023-03-24 18:35] LABS: BARBITURATE, URINE NEGATIVE ng/ml (NEG <=200); BENZODIAZEPINE, URINE NEGATIVE ng/mL (NEG <=200); CANNABINOID, URINE NEGATIVE ng/mL (NEG <=50); COCAINE, URINE POSITIVE ng/mL (NEG <=300); OPIATE, URINE NEGATIVE ng/mL (NEG <=2000); PHENCYCLIDINE SCREEN,URINE NEGATIVE ng/mL (NEG <=25)
--- NOTE | 2023-03-24 19:10 | NUR ---
REPORT GIVEN TO ADDY MICHEL FOR CONTINUITY OF CARE. IN STABLE CONDITION.
--- NOTE | 2023-03-24 19:30 | NUR ---
RECEIVED REPORT FROM DAY SHIFT NURSE KIARA FOR CONTINUITY OF CARE. PATIENT IS A&O X4. PATIENT IS ON ROOM AIR, BREATHING IS NORMAL WITH SYMMETRICAL RISE AND FALL OF CHEST. IV IS A 22G R HAND, NO FLUIDS RUNNING AT THIS TIME (SALINE LOCKED). PATIENT WAS SCHEDULED FOR PARACENTESIS EARLIER; BUT PARACENTESIS WAS CANCELED DUE TO LOW PLATELETS PER DAY SHIFT NURSE. PATIENT IS SITTING HIGH-FOWLERS POSITION ON SIDE OF BED EATING DINNER. BED IS IN LOWEST POSITION, WHEELS LOCKED, CALL LIGHT IN PLACE. WILL CONTINUE TO OBSERVE PATIENT.
[2023-03-24 20:00] VITALS: BP 124/72
--- NOTE | 2023-03-24 20:13 | NUR ---
RECEIVED CALL FROM RADIOLOGY ABOUT PARACENTESIS. INFORMED THEM THAT I WAS TOLD THAT PARACENTESIS WAS BEING CANCELLED DUE TO LOW PLATELETS OF 29. RADIOLOGY THANKED ME AND SAID THEY WOULD NOTATE IT.
--- NOTE | 2023-03-24 20:48 | NUR ---
PATIENT WAS TAKEN FOR CT SCAN OF ABDOMEN. PATIENT CURRENTLY OFF UNIT.
--- NOTE | 2023-03-24 21:01 | NUR ---
PATIENT ARRIVED BACK ON THE UNIT FROM CT SCAN OF ABDOMEN W/O CONTRAST. PATIENT WAS ABLE TO AMBULATE FROM WHEELCHAIR TO BATHROOM WITHOUT ANY DIFFICULTY; PATIENT'S GAIT IS STEADY. WILL CONTINUE TO OBSERVE PATIENT.
--- NOTE | 2023-03-25 00:10 | NUR ---
PATIENT IS SLEEPING COMFORTABLY; LYING SEMI-FOWLERS POSITION. BREATHING IS NORMAL WITH SYMMETRICAL RISE AND FALL OF CHEST. BED IS IN LOWEST POSITION, WHEELS LOCKED, CALL LIGHT IN PLACE. WILL CONTINUE TO OBSERVE PATIENT.
[2023-03-25 04:00] VITALS: BP 132/79
--- NOTE | 2023-03-25 05:00 | NUR ---
PATIENT SLEPT THROUGHOUT THE NIGHT. BREATHING IS NORMAL WITH SYMMETRICAL RISE AND FALL OF CHEST. BED IS IN LOWEST POSITION, WHEELS LOCKED, CALL LIGHT IN PLACE. WILL CONTINUE TO OBSERVE PATIENT.
[2023-03-25 05:28] LABS: BASOPHILS % (AUTO) 0.3 % (0.0-2.0); EOSINOPHILS # (AUTO) 0.1 K/uL (0-0.4); EOSINOPHILS % (AUTO) 1.9 % (0.0-4.0); HEMATOCRIT 28.1 % (36-52); HEMOGLOBIN 9.6 g/dL (12.0-18.0); LYMPHOCYTES # (AUTO) 0.3 K/uL (2.0-11.5); LYMPHOCYTES % (AUTO) 10.6 % (20.5-51.1); MEAN CORPUSCULAR HEMOGLOBIN 31 pg (27-31); MEAN CORPUSCULAR HGB CONC 34 g/dL (33-37); MEAN CORPUSCULAR VOLUME 90.9 fL (80-94); MONOCYTES # (AUTO) 0.3 K/uL (0.8-1.0); MONOCYTES % (AUTO) 10.1 % (1.7-9.3); NEUTROPHILS # (AUTO) 2.4 K/uL (1.8-7.7); NEUTROPHILS % (AUTO) 77.1 % (42.2-75.2); PLATELET COUNT (AUTO) 27 K/uL (140-450); RED BLOOD CELL COUNT(AUTO) 3.09 MIL/uL (4.20-6.10); RED CELL DISTRIBUTION WIDTH 17.9 % (11.6-13.7); WHITE BLOOD COUNT (AUTO) 3.1 K/uL (4.8-10.8)
[2023-03-25 06:01] LABS: ANION GAP 6.8 (8-16); CARBON DIOXIDE 23.7 mmol/L (21-32); CREATININE 0.7 mg/dL (0.6-1.3); POTASSIUM 3.5 mmol/L (3.5-5.1)
--- NOTE | 2023-03-25 07:11 | NUR ---
ENDORSED TO DAY SHIFT NURSE KIARA FOR CONTINUITY OF CARE. PATIENT IS STABLE.
--- NOTE | 2023-03-25 07:20 | NUR ---
ASSUMED CONTINUITY OF CARE. INITIAL ASSESSMENT DONE. KEEP COMFORTABLE ON BED. CALL LIGHT WITHIN REACH.
[2023-03-25 08:00] VITALS: BP 132/86
--- NOTE | 2023-03-25 08:00 | NUR ---
Patient's Plan of Care was discussed and reviewed with SHEETMETAL PATTERNMAKER: KIARA
[2023-03-25 08:08] LABS: T4 (THYROXINE) 9.4 ug/dL (4.5-12.0)
[2023-03-25] MEDS: FERROUS SULFATE 325 MG TABEC PO SCH ×2 (08:26→17:50)
[2023-03-25] MEDS: PROPRANOLOL 20 MG TAB PO SCH ×3 (08:27→17:51)
[2023-03-25] MEDS: LACTULOSE 20 GM/30 ML UDC PO SCH ×3 (08:27→17:50)
[2023-03-25] MEDS: GABAPENTIN 100 MG CAP PO SCH ×3 (08:27→17:50)
[2023-03-25] MEDS: SPIRONOLACTONE 50 MG TAB PO SCH (08:27)
[2023-03-25] MEDS: FUROSEMIDE 40 MG TAB PO SCH (08:28)
[2023-03-25] MEDS ORDERED: PANTOPRAZOLE 40 MG TABEC PO SCH (09:00)
--- NOTE | 2023-03-25 09:15 | NUR ---
DC PLANNIN YRS OLD MALE PATIENT WAS ADMITTED FROM HOME WITH A DX OF ASCITES, PANCYTOPENIA. PATIENT HAS A HX OF LIVER CIRRHOSIS, HEP C, HTN, HLD, DM AND ANEMIA. CT AND US ABD SHOWED CIRRHOSIS OF THE LIVER AND LARGE ASCITES. ADMINISTERED HIS HOME MEDS. CONSULTED WITH GI AND POSSIBLE PARACENTESIS. DC PLAN TO GO HOME WHEN STABLE. CM TO FOLLOW.
--- NOTE | 2023-03-25 09:22 | NUR ---
DC PLANNING ASSESSMENT COMPLETE PLEASE REFER TO ASSESSMENT FOR ADDITIONAL DETAILS PT REPORTS DC PLAN IS TO RETURN HOME WITH WITH FIANCE PROVIDING TRANSPORTATION, WHEN MEDICALLY STABLE. Addendum: 03/25/23 at 0925 by Cristy HAWLEY Amended: Links added.
--- NOTE | 2023-03-25 11:05 | NUR ---
CHARGE NURSE LISHA MICHEL CALLED LAB REGARDING MD ORDER OF 2 UNITS PLT TO BE USED TOMORROW FOR PT. PARACENTESIS.
--- NOTE | 2023-03-25 12:41 | NUR ---
PATIENT HAS BEEN SCREENED AND CATEGORIZED LOW NUTRITION RISK. PATIENT WILL BE SEEN WITHIN 7 DAYS OF ADMISSION. 03/24/23-03/31/23 RE[address] BY MICHAEL RIZVI RD
[2023-03-25 16:00] VITALS: BP 132/90
--- NOTE | 2023-03-25 18:00 | NUR ---
DR. TAYLOR SPOKE TO PT. AT BEDSIDE.
--- NOTE | 2023-03-25 19:22 | NUR ---
REPORT GIVEN TO SEMAJ LUIS. IN STABLE CONDITION.
--- NOTE | 2023-03-25 19:23 | NUR ---
RECEIVED REPORT FROM BEVERLEY CRAIG FOR CONTINUITY OF CARE. PT A/A/O. LAYING IN BED, EYES CLOSED. AMBULATORY. ABLE TO MAKE NEEDS KNOWN. RESPIRATIONS EVEN AND UNLABORED ON RA. DENIES PAIN. SKIN INTACT, WARM AND DRY TO TOUCH. FOR US GUIDED PARACENTESIS WITH 2U PLATELET TOMORROW. POC DISCUSSED. REPORT GIVEN TO REY MOSES. CALL LIGHT WITHIN REACH. SAFETY PRECAUTIONS IN PLACE.
[2023-03-25 20:00] VITALS: BP 109/73
--- NOTE | 2023-03-25 22:00 | NUR ---
Patient's Plan of Care was discussed and reviewed with BEVERLEY PAGE
[2023-03-26 04:00] VITALS: BP_SYST 111; BP_SYST 120; BP_DIAS 69; BP_DIAS 81
--- NOTE | 2023-03-26 04:47 | NUR ---
IV SITE CLOGGED. SUCCESSFULLY RE-INSERTED NEW IV SITE, NOW IN RFA 20G. PT TOLERATED WELL.
[2023-03-26 05:09] LABS: BASOPHILS % (AUTO) 0.4 % (0.0-2.0); EOSINOPHILS # (AUTO) 0.1 K/uL (0-0.4); EOSINOPHILS % (AUTO) 2.6 % (0.0-4.0); HEMATOCRIT 28.6 % (36-52); HEMOGLOBIN 9.8 g/dL (12.0-18.0); LYMPHOCYTES # (AUTO) 0.4 K/uL (2.0-11.5); LYMPHOCYTES % (AUTO) 9.4 % (20.5-51.1); MEAN CORPUSCULAR HEMOGLOBIN 31 pg (27-31); MEAN CORPUSCULAR HGB CONC 34 g/dL (33-37); MEAN CORPUSCULAR VOLUME 90.8 fL (80-94); MONOCYTES # (AUTO) 0.4 K/uL (0.8-1.0); MONOCYTES % (AUTO) 10.8 % (1.7-9.3); NEUTROPHILS % (AUTO) 76.8 % (42.2-75.2); PLATELET COUNT (AUTO) 28 K/uL (140-450); RED BLOOD CELL COUNT(AUTO) 3.14 MIL/uL (4.20-6.10); RED CELL DISTRIBUTION WIDTH 17.8 % (11.6-13.7); WHITE BLOOD COUNT (AUTO) 3.9 K/uL (4.8-10.8)
--- NOTE | 2023-03-26 05:26 | NUR ---
DID ROUNDS. PT AWAKE IN BED. NO DISTRESS NOTED. DENIES PAIN. OFFERED TO TRANSFER TO OTHER ROOM DUE TO BED-A PT SCREAMING LOUDLY AT TIMES, PT REFUSED.
[2023-03-26 05:32] LABS: ANION GAP 7.4 (8-16); CARBON DIOXIDE 25.4 mmol/L (21-32); CREATININE 0.9 mg/dL (0.6-1.3); POTASSIUM 3.8 mmol/L (3.5-5.1)
[2023-03-26] MEDS ORDERED: LANSOPRAZOLE 30 MG CAPDR PO SCH (06:30)
--- NOTE | 2023-03-26 07:22 | NUR ---
GAVE BEDSIDE REPORT TO BEVERLEY DOWNING FOR CONTINUITY OF CARE. PT IS STABLE. Addendum: 03/26/23 at 0722 by Radha Swift LVN GAVE BEDSIDE REPORT TO REY ASHRAF FOR CONTINUITY OF CARE. PT IS STABLE.
--- NOTE | 2023-03-26 07:30 | NUR ---
RECEIVED REPORT FROM REMELT PAN TANK OPERATOR NURSE. PT IS RESTING WITH CHEST RISING AND FALLING. NO ACUTE S/S OF DISTRESS. ALL SAFETY MEASURES IN PLACE. CALL LIGHT WITHIN REACH.
[2023-03-26] MEDS ORDERED: CRUSHER, PILL MC ONE (08:26)
[2023-03-26] MEDS: SPIRONOLACTONE 50 MG TAB PO SCH (08:32)
[2023-03-26] MEDS: FERROUS SULFATE 325 MG TABEC PO SCH ×2 (08:33→17:21)
[2023-03-26] MEDS: GABAPENTIN 100 MG CAP PO SCH ×3 (08:33→17:21)
[2023-03-26] MEDS: PROPRANOLOL 20 MG TAB PO SCH ×3 (08:33→17:21)
[2023-03-26] MEDS: FUROSEMIDE 40 MG TAB PO SCH (08:33)
[2023-03-26] MEDS: LACTULOSE 20 GM/30 ML UDC PO SCH ×3 (08:34→17:20)
[2023-03-26] MEDS ORDERED: PANTOPRAZOLE 40 MG INJ VIAL IVP SCH (09:00)
[2023-03-26 09:25] VITALS: BP 117/79
--- NOTE | 2023-03-26 09:56 | NUR ---
CALLED LAB AT 0810, STATED PLT WILL BE READY IN 30 MINUTES. CALLED LAB AGAIN AT 0850, PLTS NOT READY, BBK STATING ONLY 1 STAFF MEMBER. RECEIVED CALL FROM LAB ROUGHLY 0925, STATING NEEDS ORDER. CALLED LAB BACK AT 0955 TO INFORM THEM THE ORDER FOR 2 PLT UNITS IS IN, AMIR NOT IN, IN A MEETING. WILL FOLLOW UP
--- NOTE | 2023-03-26 10:30 | NUR ---
RECEIVED PLTS, TUBING PRIMED. PT DOES NOT HAVE BLOOD BANK BRACELET CALLED LAB REGARDING MISSING VITAL BRACELET. STATED THEY ARE GETTING IT APPROVED AND WILL BRING IT DOWN.
--- NOTE | 2023-03-26 10:45 | NUR ---
CALLED RADIOLOGY, STEFANO BERNARD STATED THE RADIOLOGIST HAS LEFT THE HOSPITAL AND IS UNABLE TO DO PROCEDURE UNTIL TOMORROW
--- NOTE | 2023-03-26 17:25 | NUR ---
TRANSFUSION HAS BEEN COMPLETED. VITAL SIGNS WITHIN NORMAL LIMITS. PT IS STABLE WITH NO ADVERSE EFFECTS.
--- NOTE | 2023-03-26 17:40 | NUR ---
PT DISCHARGED. PT STABLE WITH NO S/S OF DISTRESS. PRIVATE VEHICLE TRANSPORTATION WITH FAMILY. TOOK PT OUT IN WHEELCHAIR.
== END 2023-03-26 17:40 | disposition home or self-care (01) | DRG 280 ==
LOC: MED 12:41 → MMU 16:07 → MTU 16:47
PROVIDERS: ADMIT Family Medicine; ATTEND Family Medicine
PROC: 30233R1 Transfusion of Nonautologous Platelets into Peripheral Vein, Percutaneous Approach (ICD-10-PCS; principal; 2023-03-26)
PROC: 0W9G3ZZ Drainage of Peritoneal Cavity, Percutaneous Approach (ICD-10-PCS; 2023-03-26)
DX: K70.31 Alcoholic cirrhosis of liver with ascites (principal); E43 Unspecified severe protein-calorie malnutrition; D69.6 Thrombocytopenia, unspecified; E83.51 Hypocalcemia; D64.9 Anemia, unspecified; B19.20 Unspecified viral hepatitis C without hepatic coma; D72.819 Decreased white blood cell count, unspecified; Z68.28 Body mass index [BMI] 28.0-28.9, adult; F19.10 Other psychoactive substance abuse, uncomplicated; E83.42 Hypomagnesemia; I10 Essential (primary) hypertension; E78.5 Hyperlipidemia, unspecified; K59.00 Constipation, unspecified
CPT/HCPCS: 36415; 36430; 74150; 76705; 80048; 80053; 80305; 81001; 82150; 83036; 83690; 83735; 83880; 84100; 84436; 84439; 84443; 84479; 85025; 85610; 85730; 86886; 86900; 86901; 87081; 99285; C9113; P9035; Q0092

== ENCOUNTER 2023-03-27 13:01 | Emergency (ER) | payer MEDICAID ==
[~2023-03-27] VITALS: Ht 175.3 cm; Wt 76.2 kg
[~2023-03-27 13:01] MED LIST changes: -FURO-572 PO; +GABA100C PO
[2023-03-27 13:15] VITALS: BP 91/66
--- NOTE | 2023-03-27 13:41 | NUR ---
Patient arrived ED 4 for c/o paracentesis recheck from yesterday. He is saying it is leaking in the area where the hole is. Patient is responsive and alert and able to answer questions. Has PMH cirrhosis liver, HTN. Patient able to walk. at bedside.
[2023-03-27 14:54] VITALS: BP 134/76
--- NOTE | 2023-03-27 14:57 | NUR ---
Dr. Norris spoke with patient. Patient and aware of discharge instructions and paperwork. Follow up care provided. Patient items such as chucks and bandaids provided. Patient ambulatory with steady gait to personal vehicle. No distress noted. Vital signs stable.
== END 2023-03-27 13:41 | disposition home or self-care (01) ==
LOC: MED 13:01
DX: R18.8 Other ascites (principal); Z79.899 Other long term (current) drug therapy
CPT/HCPCS: 99281

== ENCOUNTER 2023-04-16 16:54 | Inpatient (IN) | payer MEDICAID ==
[~2023-04-16] VITALS: Ht 175.3 cm; Wt 81.6 kg
[2023-04-16 17:18] VITALS: BP 160/100
[2023-04-16 17:56] LABS: BASOPHILS % (AUTO) 0.3 % (0.0-2.0); EOSINOPHILS % (AUTO) 1.3 % (0.0-4.0); HEMATOCRIT 32.2 % (36-52); HEMOGLOBIN 10.9 g/dL (12.0-18.0); LYMPHOCYTES # (AUTO) 0.3 K/uL (2.0-11.5); LYMPHOCYTES % (AUTO) 10.1 % (20.5-51.1); MEAN CORPUSCULAR HEMOGLOBIN 32 pg (27-31); MEAN CORPUSCULAR HGB CONC 34 g/dL (33-37); MEAN CORPUSCULAR VOLUME 94.4 fL (80-94); MONOCYTES # (AUTO) 0.3 K/uL (0.8-1.0); MONOCYTES % (AUTO) 8.3 % (1.7-9.3); NEUTROPHILS # (AUTO) 2.6 K/uL (1.8-7.7); PLATELET COUNT (AUTO) 32 K/uL (140-450); RED BLOOD CELL COUNT(AUTO) 3.41 MIL/uL (4.20-6.10); RED CELL DISTRIBUTION WIDTH 18.1 % (11.6-13.7); WHITE BLOOD COUNT (AUTO) 3.3 K/uL (4.8-10.8)
[2023-04-16 18:17] LABS: ACETAMINOPHEN < 0.5 ug/ml (10-30); SALICYLATE < 2.8 mg/dL (2.8-20.0)
[2023-04-16 18:31] LABS: ALBUMIN 1.9 g/dL (3.4-5.0); ANION GAP 8.5 (8-16); CARBON DIOXIDE 24.8 mmol/L (21-32); POTASSIUM 4.3 mmol/L (3.5-5.1); TOTAL BILIRUBIN 2.5 mg/dL (0.0-1.0)
--- NOTE | 2023-04-16 18:31 | NUR ---
PATIENT WHEELCHAIR ASSISTED TO BED 7.
--- NOTE | 2023-04-16 18:31 | NUR ---
PT. TO BED 7 VIA WC. PT.'S PRIMARY RN NOTIFIED
--- NOTE | 2023-04-16 19:31 | NUR ---
REPORT RECEIVED FROM OUTGOING RN FOR CONTINUITY OF CARE.
--- NOTE | 2023-04-16 19:46 | NUR ---
PATIENT AMBULATED TO RESTROOM WITH ASSISTANCE.
--- NOTE | 2023-04-16 21:02 | NUR ---
PATIENT TRANSPORTED TO RADIOLOGY VIA GURNEY.
[2023-04-16] MEDS ORDERED: MORPHINE SULFATE 2 MG/ML SYR IVP STA (23:05)
[2023-04-16] MEDS ORDERED: NACL 0.9% 500 ML IV ONE (23:05)
--- NOTE | 2023-04-16 23:15 | NUR ---
LAB AT BEDSIDE.
--- NOTE | 2023-04-17 00:02 | NUR ---
URINE SENT TO ER Addendum: 04/17/23 at 0003 by [id number] URINE SENT TO LAB
[2023-04-17 00:14] LABS: APPEARANCE,URINE CLEAR (CLEAR); BILIRUBIN,URINE NEGATIVE (NEGATIVE); BLOOD, URINE NEGATIVE (NEGATIVE); COLOR,URINE YELLOW (YELLOW); LEUKOCYTE ESTERASE ,URINE NEGATIVE (NEGATIVE); NITRITE, URINE NEGATIVE (NEGATIVE); UGLUCOSE NEGATIVE (NEGATIVE)
--- NOTE | 2023-04-17 00:52 | NUR ---
PATIENT RESTING AFTER INTERVENTIONS. EYES CLOSED WITH EQUAL RISE AND FALL OF CHEST. VSS AND APPEARS TO NOT BE IN ANY DISTRESS AT THIS TIME.
[2023-04-17] MEDS ORDERED: LACTULOSE 20 GM/30 ML UDC PO ONE ×2 (01:00→01:55)
--- NOTE | 2023-04-17 02:46 | NUR ---
COVID SWAB SENT TO LAB
--- NOTE | 2023-04-17 02:47 | NUR ---
PATIENT AMBULATE TO AND FROM BATHROOM WITH ASSISTANCE. PATIENT BACK ON MONITOR.
[2023-04-17] MEDS ORDERED: GABA100C PO (05:08)
[2023-04-17] MEDS ORDERED: LACT-103 PO (05:08)
[2023-04-17] MEDS ORDERED: FURO-570 PO (05:08)
[2023-04-17] MEDS ORDERED: FERR-149 PO (05:10)
[2023-04-17] MEDS ORDERED: SPIR50TA PO (05:10)
[2023-04-17] MEDS ORDERED: LANS15EC28 PO (05:10)
[2023-04-17] MEDS ORDERED: PROP20TA29 PO (05:12)
--- NOTE | 2023-04-17 07:03 | NUR ---
DR. STRONG AT BEDSIDE.
[2023-04-17] MEDS ORDERED: ONDANSETRON 4 MG/2 ML VIAL IVP PRN (07:15)
[2023-04-17] MEDS ORDERED: DOCUSATE SODIUM 100 MG GELCAP PO PRN (07:15)
[2023-04-17] MEDS ORDERED: LORazepam 2 MG/ML VIAL IVP PRN (07:15)
[2023-04-17] MEDS ORDERED: POTASSIUM CHLORIDE 10 MEQ TABER PO PRN (07:15)
--- NOTE | 2023-04-17 07:18 | NUR ---
REPORT GIVEN TO INCOMING RN FOR CONTINUITY OF CARE. ALL CARES ENDORSED.
--- NOTE | 2023-04-17 07:20 | NUR ---
REPORT RECEIVED FROM BIB LE. ASSUMED CARE AT THIS TIME
[2023-04-17 07:30] LABS: BASOPHILS % (AUTO) 0.5 % (0.0-2.0); EOSINOPHILS # (AUTO) 0.1 K/uL (0-0.4); EOSINOPHILS % (AUTO) 2.8 % (0.0-4.0); HEMATOCRIT 29.2 % (36-52); HEMOGLOBIN 9.9 g/dL (12.0-18.0); LYMPHOCYTES # (AUTO) 0.3 K/uL (2.0-11.5); LYMPHOCYTES % (AUTO) 11.6 % (20.5-51.1); MEAN CORPUSCULAR HEMOGLOBIN 32 pg (27-31); MEAN CORPUSCULAR HGB CONC 34 g/dL (33-37); MEAN CORPUSCULAR VOLUME 95.6 fL (80-94); MONOCYTES # (AUTO) 0.3 K/uL (0.8-1.0); MONOCYTES % (AUTO) 10.4 % (1.7-9.3); NEUTROPHILS % (AUTO) 74.7 % (42.2-75.2); PLATELET COUNT (AUTO) 31 K/uL (140-450); RED BLOOD CELL COUNT(AUTO) 3.06 MIL/uL (4.20-6.10); WHITE BLOOD COUNT (AUTO) 2.6 K/uL (4.8-10.8)
--- NOTE | 2023-04-17 07:30 | NUR ---
pt at rest w/ eyes closed. respirations even and unlabored. bed at lowest position, bed rails upx2
--- NOTE | 2023-04-17 08:23 | NUR ---
pt provided w/ breakfast. pt awake, repositioned and eating in bed
--- NOTE | 2023-04-17 08:26 | NUR ---
PER US SHERRI. PT NEEDING US ABD LIMITED, PTT AND PT W/ INR ORDERS. MD STRONG NOTIFIED.
--- NOTE | 2023-04-17 08:30 | NUR ---
ORDERS RECEIVED FROM MD STRONG. ORDERS CONFIRMED, INPUTED AND CARRIED OUT. US ABD LIMITED -ONCE, STAT PTT -ONCE, STAT PT W/ INR -ONCE, STAT
--- NOTE | 2023-04-17 08:44 | NUR ---
US AT BEDSIDE
[2023-04-17] MEDS ORDERED: LACTULOSE 20 GM/30 ML UDC PO SCH (09:00)
[2023-04-17 09:08] LABS: ALBUMIN 1.6 g/dL (3.4-5.0); ANION GAP 7.1 (8-16); CREATININE 0.9 mg/dL (0.6-1.3); POTASSIUM 4.1 mmol/L (3.5-5.1); TOTAL BILIRUBIN 2.4 mg/dL (0.0-1.0)
[2023-04-17] MEDS: LACTULOSE 20 GM/30 ML UDC PO SCH ×3 (09:29→18:06)
[2023-04-17] MEDS: SPIRONOLACTONE 25 MG TAB PO SCH (09:30)
--- NOTE | 2023-04-17 11:59 | NUR ---
pt provided w/ lunch. pt awake, repositioned and eating in bed.
--- NOTE | 2023-04-17 19:27 | NUR ---
REPORT GIVEN TO ADDY LE. TRANSFER OF CARE AT THIS TIME
--- NOTE | 2023-04-17 19:30 | NUR ---
Infusion completed, no adverse reactions.
--- NOTE | 2023-04-17 19:43 | NUR ---
Patient resting in bed, A/Ox4, chest rise and fall symmetrical, no c/o pain or s/s of distress, on monitor.
--- NOTE | 2023-04-17 19:44 | NUR ---
ct tech at bedside drawing blood. Patient tolerating procedure well, no c/o pain or s/s of distress.
[2023-04-17 19:56] LABS: BASOPHILS % (AUTO) 0.5 % (0.0-2.0); EOSINOPHILS # (AUTO) 0.1 K/uL (0-0.4); EOSINOPHILS % (AUTO) 2.3 % (0.0-4.0); HEMATOCRIT 30.2 % (36-52); HEMOGLOBIN 10.1 g/dL (12.0-18.0); LYMPHOCYTES # (AUTO) 0.3 K/uL (2.0-11.5); LYMPHOCYTES % (AUTO) 11.3 % (20.5-51.1); MEAN CORPUSCULAR HEMOGLOBIN 32 pg (27-31); MEAN CORPUSCULAR HGB CONC 34 g/dL (33-37); MEAN CORPUSCULAR VOLUME 95.8 fL (80-94); MONOCYTES # (AUTO) 0.3 K/uL (0.8-1.0); MONOCYTES % (AUTO) 10.1 % (1.7-9.3); NEUTROPHILS # (AUTO) 2.2 K/uL (1.8-7.7); NEUTROPHILS % (AUTO) 75.8 % (42.2-75.2); PLATELET COUNT (AUTO) 32 K/uL (140-450); RED BLOOD CELL COUNT(AUTO) 3.15 MIL/uL (4.20-6.10); RED CELL DISTRIBUTION WIDTH 18.1 % (11.6-13.7); WHITE BLOOD COUNT (AUTO) 2.9 K/uL (4.8-10.8)
--- NOTE | 2023-04-17 21:00 | NUR ---
Patient resting in bed, A/Ox4, chest rise and fall symmetrical, no c/o pain or s/s of distress, on monitor.
[2023-04-17] MEDS: MORPHINE SULFATE 2 MG/ML SYR IVP PRN (21:29)
[2023-04-17 21:36] VITALS: BP 154/84
--- NOTE | 2023-04-17 21:36 | NUR ---
Admitted from ER , with chief complaint of ABDOMINAL DISTENTION , 57 y/o ,Male, Appropriate,on room air. no complains of pain. no s/sx of distress. oriented to call light, bed, phone,television, bathroom, smoking policy, visiting hours, procedures, ID bracelet on. Belongings list checked.
--- NOTE | 2023-04-17 21:40 | NUR ---
Patient will be admitted to care of Dr. Lombardo. Admited to telemetry. Will go to room 125B. Belongings list completed. Report to Arnel LE. Arnel LE verbalized understanding of report, no further questions.
[2023-04-18] VITALS: BP 116/63
--- NOTE | 2023-04-18 00:30 | NUR ---
VITAL SIGNS STABLE. NO S/SX OF DISTRESS NOTED. ALL PRECAUTIONS IN PLACE. CALL LIGHT WITHIN REACH. WILL CONTINUE TO MONITOR.
[2023-04-18] MEDS: MORPHINE SULFATE 2 MG/ML SYR IVP PRN (03:37)
[2023-04-18 04:00] VITALS: BP 110/68
[2023-04-18 06:01] LABS: BASOPHILS % (AUTO) 0.4 % (0.0-2.0); EOSINOPHILS # (AUTO) 0.1 K/uL (0-0.4); EOSINOPHILS % (AUTO) 2.8 % (0.0-4.0); HEMATOCRIT 27.5 % (36-52); HEMOGLOBIN 9.5 g/dL (12.0-18.0); LYMPHOCYTES # (AUTO) 0.3 K/uL (2.0-11.5); LYMPHOCYTES % (AUTO) 12.3 % (20.5-51.1); MEAN CORPUSCULAR HEMOGLOBIN 33 pg (27-31); MEAN CORPUSCULAR HGB CONC 34 g/dL (33-37); MEAN CORPUSCULAR VOLUME 95.8 fL (80-94); MONOCYTES # (AUTO) 0.3 K/uL (0.8-1.0); MONOCYTES % (AUTO) 10.5 % (1.7-9.3); NEUTROPHILS # (AUTO) 1.9 K/uL (1.8-7.7); PLATELET COUNT (AUTO) 31 K/uL (140-450); RED BLOOD CELL COUNT(AUTO) 2.88 MIL/uL (4.20-6.10); WHITE BLOOD COUNT (AUTO) 2.6 K/uL (4.8-10.8)
[2023-04-18 06:06] LABS: ANION GAP 8.5 (8-16); CARBON DIOXIDE 23.5 mmol/L (21-32); CREATININE 0.9 mg/dL (0.6-1.3)
--- NOTE | 2023-04-18 07:19 | NUR ---
PT IS STABLE. NO ACUTE EVENT THROUGHOUT THE NIGHT. NO S/SX OF DISTRESS AT THIS MOMENT. NO COMPLAINS OF PAIN. ALL NEEDS MET.ALL PRECAUTIONS IN PLACE. CALL LIGHT WITHIN REACH. WILL ENDORSE TO DAY SHIFT NURSE.
[2023-04-18 08:00] VITALS: BP 128/85
--- NOTE | 2023-04-18 09:23 | NUR ---
PATIENT HAS BEEN SCREENED AND CATEGORIZED MODERATE NUTRITION RISK. PATIENT WILL BE SEEN WITHIN 3-5 DAYS OF ADMISSION. / MICHAEL RIZVI RD
[2023-04-18] MEDS: SPIRONOLACTONE 25 MG TAB PO SCH (10:23)
[2023-04-18] MEDS: LACTULOSE 20 GM/30 ML UDC PO SCH ×3 (10:24→17:32)
[2023-04-18 12:00] VITALS: BP 119/80
[2023-04-18 16:00] VITALS: BP 127/75
[2023-04-18 17:09] LABS: BARBITURATE, URINE NEGATIVE ng/ml (NEG <=200); BENZODIAZEPINE, URINE NEGATIVE ng/mL (NEG <=200); CANNABINOID, URINE NEGATIVE ng/mL (NEG <=50); COCAINE, URINE POSITIVE ng/mL (NEG <=300); OPIATE, URINE POSITIVE ng/mL (NEG <=2000)
[2023-04-18 17:10] LABS: PHENCYCLIDINE SCREEN,URINE NEGATIVE ng/mL (NEG <=25)
--- NOTE | 2023-04-18 19:30 | NUR ---
RECD REPORT FROM REY CHAKRABORTY. PATIENT RESTING IN BED, RESPIRATION EVEN AND UNLABORED. IV LINE AT THE RIGHT HAND G20 AND RIGHT AC G20, PATENT AND INTACT. WITH ABDOMINAL DISTENTION. AMBULATORY TO THE BATH ROOM. DENIES PAIN 0/10.
[2023-04-18 20:00] VITALS: BP 127/81
--- NOTE | 2023-04-18 20:00 | NUR ---
Patient's Plan of Care was discussed and reviewed with BEVERLEY: TIAN
--- NOTE | 2023-04-18 21:00 | NUR ---
RESTING COMFORTABLY IN BED, WATCHING TV.
[2023-04-18] MEDS: ZOLPIDEM 10 MG TAB PO PRN (23:42)
--- NOTE | 2023-04-18 23:42 | NUR ---
UNABLE TO SLEEP. MEDICATED WITH AMBIEN PER MD ORDER.
--- NOTE | 2023-04-19 | NUR ---
TRANSFER TO ROOM 123-B.
--- NOTE | 2023-04-19 00:20 | NUR ---
CONVERSING WITH PATIENT IN BED B WHILE STANDING, ADVISED TO LAY IN BED AND SLEEP BECAUSE HE MIGHT GET DIZZY.
--- NOTE | 2023-04-19 01:30 | NUR ---
IN BED COMFORTABLY RESTING.
--- NOTE | 2023-04-19 01:45 | NUR ---
SLEEPING COMFORTABLY IN BED. RESPIRATION EVEN AND UNLABORED.
--- NOTE | 2023-04-19 02:30 | NUR ---
RN REPORTED PATIENT THAT ALMOST FELL, CHECKED PATIENT. FOUND SITTING ON BED WITH PUDDING ON CHAIR. EXPLAINED IT IS NOT SAFE FOR HIM TO WALK AND ALWAYS CALL NURSE BEFORE GETTING OUT OF BED. VERBALIZED UNDERSTANDING.
[2023-04-19] MEDS: MAG SULF 2000 MG/WATER PREMIX 50 ML IV PRN ×2 (03:01→10:39)
--- NOTE | 2023-04-19 03:01 | NUR ---
MG LEVEL - 1.6. MAGNESIUM IVPB ADMINISTERED BY REY TOM PER MD ORDER.
[2023-04-19 04:00] VITALS: BP 112/69
[2023-04-19 07:29] LABS: ANION GAP 11.3 (8-16); CARBON DIOXIDE 28.3 mmol/L (21-32); CREATININE 0.9 mg/dL (0.6-1.3); POTASSIUM 3.6 mmol/L (3.5-5.1)
[2023-04-19 07:30] LABS: BASOPHILS % (AUTO) 0.3 % (0.0-2.0); EOSINOPHILS # (AUTO) 0.1 K/uL (0-0.4); EOSINOPHILS % (AUTO) 3.7 % (0.0-4.0); HEMATOCRIT 26.6 % (36-52); HEMOGLOBIN 9.2 g/dL (12.0-18.0); LYMPHOCYTES # (AUTO) 0.4 K/uL (2.0-11.5); MEAN CORPUSCULAR HEMOGLOBIN 32 pg (27-31); MEAN CORPUSCULAR HGB CONC 34 g/dL (33-37); MEAN CORPUSCULAR VOLUME 94.4 fL (80-94); MONOCYTES # (AUTO) 0.3 K/uL (0.8-1.0); NEUTROPHILS # (AUTO) 1.6 K/uL (1.8-7.7); NEUTROPHILS % (AUTO) 69.4 % (42.2-75.2); PLATELET COUNT (AUTO) 26 K/uL (140-450); RED BLOOD CELL COUNT(AUTO) 2.82 MIL/uL (4.20-6.10); RED CELL DISTRIBUTION WIDTH 17.7 % (11.6-13.7); WHITE BLOOD COUNT (AUTO) 2.3 K/uL (4.8-10.8)
--- NOTE | 2023-04-19 07:30 | NUR ---
PT IS STABLE. ENDORSED PT TO MORNING SHIFT NURSE FOR CONTINUITY OF CARE.
[2023-04-19 08:00] VITALS: BP 111/60
[2023-04-19 08:00] LABS: LYMPHOCYTES % (AUTO) 15.3 % (20.5-51.1); MONOCYTES % (AUTO) 11.3 % (1.7-9.3)
[2023-04-19] MEDS: LACTULOSE 20 GM/30 ML UDC PO SCH ×3 (10:36→17:37)
[2023-04-19] MEDS: SPIRONOLACTONE 25 MG TAB PO SCH (10:36)
[2023-04-19 16:00] VITALS: BP 107/69
--- NOTE | 2023-04-19 19:02 | NUR ---
ENDORSE PATIENT IN STABLE CONDITION TO PM SHIFT WHILE FAMILY AT BEDSIDE, IV D5 1/2 NS INFUSING VIA L. WRIST SITE; ABDOMINAL SURGERY SITE DRESS CHANGE. Addendum: 04/19/23 at 1915 by Claire Cesar RN WRONG PATIENT ENDORSE PATIENT IN STABLE CONDITION TO PM SHIFT WHILE PATIENT ON OBS STATUS, IV L. HAND & RAC SALINE LOCK; 2 UNITS PLATELET READY FOR US GUIDE PARACENTESIS, & NURSE INFORMED US DEPARTMENT PERSONAL
--- NOTE | 2023-04-19 19:03 | NUR ---
RECEIVED ENDORSEMENT FROM SUZANNE LE. PATIENT WAS STABLE IN BED ALERT AND ORIENTED WITH FAMILY AT BEDSIDE. PATIENT HAS ORDERS FOR PLATELETS FOR PARACENTESIS WITH ULTRASOUND GUIDE BUT NO NOTED DATE NOR TIME. NURSING WILL INFORM CHARGE NURSE AND ENDORSE TO AM SHIFT. PATIENT IS ABLE TO USE CALL LIGHT WITH IN REACH AND REQUEST NEEDS. ALL NEEDS WERE MET AT THIS TIME. KEPT CLEAN AND DRY AT THIS TIME. SIDE RAILS UP X 2 FOR COMFORT AND SAFETY.NO COMPLAINS OF PAIN/DISCOMFORT. NO NOTED RESPIRATORY DISTRESS. [email or web address]
--- NOTE | 2023-04-19 22:38 | NUR ---
PATIENT DENIES HOLDEN PAIN/DISCOMFORT. NURSING GAVE THE CALL LIGHT INSTRUCTIONS TO CALL NURSING OR PAIN MANAGEMENT. PATIENT SAID OK AND REPEATED INSTRUCTION FOR UNDERSTANDING. [email or web address]
[2023-04-19] MEDS: ZOLPIDEM 10 MG TAB PO PRN (23:18)
--- NOTE | 2023-04-20 02:04 | NUR ---
PATIENT NOTED IN BED ASLEEP NO NOTED S/S OF PAIN/DISCOMFORT. NO NOTED RESPIRATORY DISTRESS. SIDE RAILS UP X2 CALL LIGHT WITHIN REACH. [email or web address]
--- NOTE | 2023-04-20 03:21 | NUR ---
PATIENT WAS NOTED WALKING AROUND. UNABLE TO SLEEP. TERRITORY ACCOUNT REPRESENTATIVE WAS CALLED FOR SANDWICH PER PATIENT'S REQUEST. [email or web address]
--- NOTE | 2023-04-20 03:44 | NUR ---
AURELIA FROM LAB CALLED TO CONFIRM THAT PLATELETS ARE READY 1600 04/19/23. [email or web address]
[2023-04-20 04:00] VITALS: BP 115/69
--- NOTE | 2023-04-20 04:34 | NUR ---
PATIENT IN BED RESTING. NO S/S OF PAIN/DISCOMFORT. NO S/S OF RESPIRATORY DISTRESS. ALL NEEDS MET. SIDE RAILS UP X 2. CALL LIGHT IN REACH. [email or web address]
[2023-04-20 05:29] LABS: BASOPHILS % (AUTO) 0.4 % (0.0-2.0); EOSINOPHILS # (AUTO) 0.1 K/uL (0-0.4); EOSINOPHILS % (AUTO) 2.8 % (0.0-4.0); HEMATOCRIT 25.9 % (36-52); LYMPHOCYTES # (AUTO) 0.4 K/uL (2.0-11.5); LYMPHOCYTES % (AUTO) 13.9 % (20.5-51.1); MEAN CORPUSCULAR HEMOGLOBIN 33 pg (27-31); MEAN CORPUSCULAR HGB CONC 35 g/dL (33-37); MEAN CORPUSCULAR VOLUME 93.9 fL (80-94); MONOCYTES # (AUTO) 0.3 K/uL (0.8-1.0); MONOCYTES % (AUTO) 11.1 % (1.7-9.3); NEUTROPHILS # (AUTO) 1.9 K/uL (1.8-7.7); NEUTROPHILS % (AUTO) 71.8 % (42.2-75.2); PLATELET COUNT (AUTO) 30 K/uL (140-450); RED BLOOD CELL COUNT(AUTO) 2.76 MIL/uL (4.20-6.10); WHITE BLOOD COUNT (AUTO) 2.7 K/uL (4.8-10.8)
[2023-04-20 05:45] LABS: ANION GAP 5.9 (8-16); CREATININE 0.9 mg/dL (0.6-1.3); POTASSIUM 3.9 mmol/L (3.5-5.1)
--- NOTE | 2023-04-20 07:04 | NUR ---
ENDORSED TO SUZANNE LE, PATIENT WAS STABLE DURING SHIFT REPORT. [email or web address]
[2023-04-20 08:00] VITALS: BP 109/70
[2023-04-20] MEDS: SPIRONOLACTONE 25 MG TAB PO SCH (09:27)
[2023-04-20] MEDS: LACTULOSE 20 GM/30 ML UDC PO SCH ×3 (09:27→17:14)
[2023-04-20] MEDS: MAG SULF 2000 MG/WATER PREMIX 50 ML IV PRN (09:35)
[2023-04-20 16:00] VITALS: BP 118/69
--- NOTE | 2023-04-20 19:40 | NUR ---
ENDORSE PATIENT IN STABLE CONDITION WHILE PATIENT STILL WAITING US GUIDE PARACENTESIS COMPLETE BEFORE D/C HOME
--- NOTE | 2023-04-20 19:45 | NUR ---
PATIENT AWAKE ALERT RESTING IN BED WATCHING TV. NO SOB NOTED, ON ROOM AIR. NO COMPLAINTS OF PAIN. ALL SAFETY PRECAUTIONS ARE IN PLACE. CALL LIGHT ON EASY REACH. NEEDS ATTENDED TO. WILL CONTINUE TO MONITOR.
[2023-04-20] MEDS: ZOLPIDEM 10 MG TAB PO PRN (23:43)
--- NOTE | 2023-04-20 23:44 | NUR ---
PT RESTLESS AND REQUESTING AMBIEN. MEDICATION WAS ADMINISTERED BY ME. PT TOLERATED WELL. NO SIGNS OF DISTRESS NOTED.
[2023-04-21 04:00] VITALS: BP 118/75
[2023-04-21 05:13] LABS: BASOPHILS % (AUTO) 0.5 % (0.0-2.0); EOSINOPHILS # (AUTO) 0.1 K/uL (0-0.4); EOSINOPHILS % (AUTO) 2.8 % (0.0-4.0); HEMATOCRIT 26.4 % (36-52); HEMOGLOBIN 9.2 g/dL (12.0-18.0); LYMPHOCYTES # (AUTO) 0.4 K/uL (2.0-11.5); LYMPHOCYTES % (AUTO) 14.5 % (20.5-51.1); MEAN CORPUSCULAR HEMOGLOBIN 33 pg (27-31); MEAN CORPUSCULAR HGB CONC 35 g/dL (33-37); MEAN CORPUSCULAR VOLUME 94.9 fL (80-94); MONOCYTES # (AUTO) 0.4 K/uL (0.8-1.0); MONOCYTES % (AUTO) 13.1 % (1.7-9.3); NEUTROPHILS # (AUTO) 1.9 K/uL (1.8-7.7); NEUTROPHILS % (AUTO) 69.1 % (42.2-75.2); PLATELET COUNT (AUTO) 24 K/uL (140-450); RED BLOOD CELL COUNT(AUTO) 2.78 MIL/uL (4.20-6.10); WHITE BLOOD COUNT (AUTO) 2.8 K/uL (4.8-10.8)
[2023-04-21 05:40] LABS: ANION GAP 7.4 (8-16); CARBON DIOXIDE 25.4 mmol/L (21-32); CREATININE 0.9 mg/dL (0.6-1.3); POTASSIUM 3.8 mmol/L (3.5-5.1)
[2023-04-21 08:00] VITALS: BP 116/62
[2023-04-21] MEDS: SPIRONOLACTONE 25 MG TAB PO SCH (08:43)
[2023-04-21] MEDS: LACTULOSE 20 GM/30 ML UDC PO SCH ×3 (08:44→16:47)
[2023-04-21] MEDS ORDERED: LIDOCAINE MPF 1% 10 MG/ML VIAL INJ SCH (15:00)
--- NOTE | 2023-04-21 15:00 | NUR ---
04/21/23 RD INITIAL ASSESSMENT COMPLETED PLEASE REFER TO NUTRITION ASSESSMENT UNDER CARE ACTIVITY FOR ESTIMATED NUTRITIONAL NEEDS. 1. CONTINUE REGULAR DIET TOLERATED 2. MONITOR PO INTAKE AND NUTRITION RELATED LAB VALUES 3. RD TO FOLLOW-UP 7 DAYS, LOW RISK REVIEWED BY MICHAEL RIZVI RD
[2023-04-21 16:00] VITALS: BP 110/68
[2023-04-21] MEDS: ALBUMIN HUMAN 25% 100 ML IV SCH ×2 (16:46→17:56)
--- NOTE | 2023-04-21 17:05 | NUR ---
2 UNITS OF PLATELETS TRANSFUSED NO SUSPECTED REACTION. 4.8 L REMOVED FROM PARACENTESIS
--- NOTE | 2023-04-21 18:32 | NUR ---
ASKED MD ABOUT DISCHARGE FOR PATIENT, SINCE PARACENTESIS COMPLETED. PER MD POSSIBLE DC AWAITING CULTURES FROM PARACENTESIS FLUID
[2023-04-21 18:58] LABS: GLUCOSE,BODY FLUID 113 mg/dL; TOTAL VOLUME,BODY FLUID 975 mL
[2023-04-21 18:59] LABS: SPECIMENTYPE,BODY FLUID PARACENTESIS
[2023-04-21 20:00] LABS: APPEARANCE,SPUN,BODY FLUID CLEAR (CLEAR); APPEARANCE,UNSPUN,BODY FLUID HAZY (CLEAR); COLOR,BODY FLUID YELLOW (LT YELLOW); RBC, BODY FLUID 0 /cu. mm.; WBC, BODY FLUID 200 /cu. mm.
--- NOTE | 2023-04-21 20:00 | NUR ---
PATIENT RESTING IN BED WITH FAMILY MEMBER AT BEDSIDE. NO SOB NOTED. BREATHING REGULAR NON LABORED. AMBULATORY. DENIES PAIN. ALL NEEDS ATTENDED AND MET. CALL LIGHT ON EASY REACH. PATIENT VERBALIZED TO GO HOME. EXPLAINED TO PATIENT THAT PARACENTESIS FLUID RESULTS STILL PENDING.
[2023-04-21 20:01] LABS: POLYNUCLEAR, BODY FLUID 48 %
[2023-04-21] MEDS: ZOLPIDEM 10 MG TAB PO PRN (22:55)
[2023-04-22 04:00] VITALS: BP 115/64
[2023-04-22 05:05] LABS: BASOPHILS % (AUTO) 0.4 % (0.0-2.0); EOSINOPHILS # (AUTO) 0.1 K/uL (0-0.4); EOSINOPHILS % (AUTO) 2.6 % (0.0-4.0); HEMATOCRIT 24.8 % (36-52); HEMOGLOBIN 8.6 g/dL (12.0-18.0); LYMPHOCYTES # (AUTO) 0.4 K/uL (2.0-11.5); LYMPHOCYTES % (AUTO) 13.2 % (20.5-51.1); MEAN CORPUSCULAR HEMOGLOBIN 33 pg (27-31); MEAN CORPUSCULAR HGB CONC 35 g/dL (33-37); MEAN CORPUSCULAR VOLUME 94.8 fL (80-94); MONOCYTES # (AUTO) 0.3 K/uL (0.8-1.0); MONOCYTES % (AUTO) 12.1 % (1.7-9.3); NEUTROPHILS % (AUTO) 71.7 % (42.2-75.2); PLATELET COUNT (AUTO) 28 K/uL (140-450); RED BLOOD CELL COUNT(AUTO) 2.62 MIL/uL (4.20-6.10); RED CELL DISTRIBUTION WIDTH 18.1 % (11.6-13.7); WHITE BLOOD COUNT (AUTO) 2.8 K/uL (4.8-10.8)
--- NOTE | 2023-04-22 05:28 | NUR ---
RECEIVED A CALL FROM AURELIA (LAB) REPORTING CRITICAL LAB VALUE PLATELET 28. DR. STRICKLAND MADE AWARE. AWAITING FOR REPLY.
[2023-04-22 05:30] LABS: ANION GAP 8.5 (8-16); CARBON DIOXIDE 24.1 mmol/L (21-32); CREATININE 0.8 mg/dL (0.6-1.3); POTASSIUM 3.6 mmol/L (3.5-5.1)
--- NOTE | 2023-04-22 07:20 | NUR ---
RECEIVED REPORT FROM INDUSTRIAL DESIGN ENGINEER NURSE FOR CONTINUITY OF CARE. PT IS STABLE AT THIS TIME RESTING IN BED.
[2023-04-22 08:00] VITALS: BP 108/54
[2023-04-22] MEDS: SPIRONOLACTONE 25 MG TAB PO SCH (09:00)
[2023-04-22] MEDS: LACTULOSE 20 GM/30 ML UDC PO SCH (09:00)
[2023-04-22 09:58] VITALS: BP 115/64
--- NOTE | 2023-04-22 10:50 | NUR ---
PT STABLE UPON DISCHARGE. IV REMOVED AND PT AMBULATED TO LOBBY ON OWN.
== END 2023-04-22 11:04 | disposition home or self-care (01) | DRG 280 ==
LOC: MED 16:54 → MTU 04-17 00:29 → OBSVTOIN 04-17 00:30 → MMU 04-17 20:20 → INTOOBSV 04-18 09:26 → OBSVTOIN 04-18 09:26 → MTU 04-19 00:10
PROVIDERS: ADMIT General Practice; ATTEND General Practice
PROC: 0W9G30Z Drainage of Peritoneal Cavity with Drainage Device, Percutaneous Approach (ICD-10-PCS; principal; 2023-04-18)
DX: K70.31 Alcoholic cirrhosis of liver with ascites (principal); D61.818 Other pancytopenia; E43 Unspecified severe protein-calorie malnutrition; G93.41 Metabolic encephalopathy; R65.10 Systemic inflammatory response syndrome (SIRS) of non-infectious origin without acute organ dysfunction; B19.20 Unspecified viral hepatitis C without hepatic coma; Z20.822 Contact with and (suspected) exposure to COVID-19; Z68.26 Body mass index [BMI] 26.0-26.9, adult; F10.20 Alcohol dependence, uncomplicated; Z91.199 Patient's noncompliance with other medical treatment and regimen due to unspecified reason
CPT/HCPCS: 36415; 49083; 70450; 76705; 80048; 80053; 80305; 81003; 82140; 82945; 83036; 83605; 83735; 84157; 85025; 85610; 85730; 86886; 86900; 86901; 87040; 87070; 87075; 87081; 89051; 93005; 96374; 96375; 99285; G0480; G0482; J2001; J2270; J2405; J3475; P9035; P9046; Q0092; Q9967

== ENCOUNTER 2023-05-25 09:32 | Emergency (ER) | payer MEDICAID ==
[~2023-05-25] VITALS: Ht 175.3 cm; Wt 83.9 kg
[~2023-05-25 09:32] MED LIST changes: -FER325 PO; +FERR-149 PO; +FURO-570 PO; -FURO40TA9 PO; +LACT-103 PO; -LACT10SO11 PO; +LANS15EC28 PO; -LANS30EC68 PO
[2023-05-25 09:40] VITALS: BP 140/91; PULSE 81; RESP 16; TEMP 98; O2SAT 98
--- NOTE | 2023-05-25 10:08 | NUR ---
placed on monitor, b/p, pulse ox, 20g lac, labs drawn, covid sent, blood cx, lactic and ua
--- NOTE | 2023-05-25 10:09 | NUR ---
ERMD AT BEDSIDE
[2023-05-25 10:10] VITALS: TEMP 98
[2023-05-25 10:44] LABS: ANION GAP 7.7 (8-16); CARBON DIOXIDE 25.9 mmol/L (21-32); CREATININE 0.7 mg/dL (0.6-1.3); POTASSIUM 3.6 mmol/L (3.5-5.1)
[2023-05-25 10:49] LABS: HEMATOCRIT 30.9 % (36-52); HEMOGLOBIN 10.5 g/dL (12.0-18.0); MEAN CORPUSCULAR HEMOGLOBIN 33 pg (27-31); MEAN CORPUSCULAR HGB CONC 34 g/dL (33-37); MEAN CORPUSCULAR VOLUME 96.9 fL (80-94); PLATELET COUNT (AUTO) 25 K/uL (140-450); RED BLOOD CELL COUNT(AUTO) 3.19 MIL/uL (4.20-6.10); RED CELL DISTRIBUTION WIDTH 15.5 % (11.6-13.7)
[2023-05-25 10:50] LABS: BASOPHILS % (AUTO) 0.4 % (0.0-2.0); EOSINOPHILS % (AUTO) 3.4 % (0.0-4.0); LYMPHOCYTES % (AUTO) 15.5 % (20.5-51.1); MONOCYTES % (AUTO) 11.2 % (1.7-9.3); NEUTROPHILS % (AUTO) 69.5 % (42.2-75.2)
[2023-05-25 10:51] LABS: EOSINOPHILS # (AUTO) 0.1 K/uL (0-0.4); LYMPHOCYTES # (AUTO) 0.4 K/uL (2.0-11.5); MONOCYTES # (AUTO) 0.3 K/uL (0.8-1.0); NEUTROPHILS # (AUTO) 1.9 K/uL (1.8-7.7)
[2023-05-25 10:52] LABS: WHITE BLOOD COUNT (AUTO) 2.8 K/uL (4.8-10.8)
--- NOTE | 2023-05-25 11:30 | NUR ---
DR BRENNER AT BEDSIDE FOR PARACENTESIS
[2023-05-25] MEDS ORDERED: ALBUMIN HUMAN 25% IV SCH (12:45)
[2023-05-25 13:41] VITALS: BP 131/70; PULSE 74; RESP 17; O2SAT 98
== END 2023-05-25 13:42 | disposition home or self-care (01) ==
LOC: MED 09:32
DX: R18.8 Other ascites (principal); Z20.822 Contact with and (suspected) exposure to COVID-19; E11.9 Type 2 diabetes mellitus without complications; I10 Essential (primary) hypertension; Z79.4 Long term (current) use of insulin; Z79.899 Other long term (current) drug therapy
CPT/HCPCS: 36415; 49083; 73030; 80048; 85025; 85610; 87426; 96365; 99285; P9046

== ENCOUNTER 2023-06-11 11:03 | Emergency (ER) | payer MEDICAID ==
[~2023-06-11] VITALS: Ht 175.3 cm; Wt 84.6 kg
[2023-06-11 11:13] VITALS: BP 145/98; PULSE 86; RESP 20; TEMP 97.3; O2SAT 98
--- NOTE | 2023-06-11 11:40 | NUR ---
PT AMBULATED TO BED 11
--- NOTE | 2023-06-11 11:50 | NUR ---
MD LOZANO AT BEDSIDE FOR EVALUATION
[2023-06-11 12:11] LABS: BASOPHILS % (AUTO) 0.7 % (0.0-2.0); EOSINOPHILS # (AUTO) 0.1 K/uL (0-0.4); EOSINOPHILS % (AUTO) 2.9 % (0.0-4.0); HEMATOCRIT 32.3 % (36-52); HEMOGLOBIN 10.9 g/dL (12.0-18.0); LYMPHOCYTES # (AUTO) 0.3 K/uL (2.0-11.5); LYMPHOCYTES % (AUTO) 11.3 % (20.5-51.1); MEAN CORPUSCULAR HEMOGLOBIN 33 pg (27-31); MEAN CORPUSCULAR HGB CONC 34 g/dL (33-37); MEAN CORPUSCULAR VOLUME 96.4 fL (80-94); MONOCYTES # (AUTO) 0.2 K/uL (0.8-1.0); MONOCYTES % (AUTO) 9.5 % (1.7-9.3); NEUTROPHILS # (AUTO) 1.9 K/uL (1.8-7.7); NEUTROPHILS % (AUTO) 75.6 % (42.2-75.2); RED BLOOD CELL COUNT(AUTO) 3.35 MIL/uL (4.20-6.10); RED CELL DISTRIBUTION WIDTH 15.4 % (11.6-13.7); WHITE BLOOD COUNT (AUTO) 2.5 K/uL (4.8-10.8)
[2023-06-11 12:15] VITALS: O2SAT 98
--- NOTE | 2023-06-11 12:15 | NUR ---
58YO MALE PT C/O INCREASED PRESSURED ABD PAIN . PT IN FOR PARACENTISES AND STATES LAST ONE ON 05/25. DENIES N/V/D, FEVER, CHILLS OR SOB. PT AAOX4, HOB POSITIONED PER COMFORT. ON SCHEDULE ANALYST. CALL LIGHT WITHIN REACH HX: CIRRHOSIS, HEP C, HTN NKA
[2023-06-11 12:22] LABS: PROTHROMBIN TIME 13.5 secs (10.8-13.4)
[2023-06-11 12:26] LABS: CARBON DIOXIDE 26.1 mmol/L (21-32); CREATININE 0.8 mg/dL (0.6-1.3); POTASSIUM 4.1 mmol/L (3.5-5.1)
[2023-06-11 12:41] LABS: PLATELET COUNT (AUTO) 16 K/uL (140-450)
[2023-06-11 13:45] VITALS: BP 142/94; PULSE 77; RESP 20; TEMP 98.3
[2023-06-11 14:29] VITALS: O2SAT 100
[2023-06-11 14:48] VITALS: O2SAT 100
== END 2023-06-11 14:48 | disposition home or self-care (01) ==
LOC: MED 11:03
DX: K70.31 Alcoholic cirrhosis of liver with ascites (principal); E11.9 Type 2 diabetes mellitus without complications; I10 Essential (primary) hypertension; Z79.899 Other long term (current) drug therapy
CPT/HCPCS: 36415; 49083; 80053; 83690; 85025; 85610; 99285

== ENCOUNTER 2023-06-21 12:26 | Inpatient (IN) | payer MEDICAID ==
[~2023-06-21] VITALS: Ht 175.3 cm; Wt 84.8 kg
[2023-06-21 12:42] VITALS: BP 131/89; PULSE 85; RESP 20; TEMP 98.9; O2SAT 98
[2023-06-21 13:35] LABS: PROTHROMBIN TIME 12.4 secs (10.8-13.4)
[2023-06-21 13:43] LABS: ALBUMIN 1.9 g/dL (3.4-5.0); ANION GAP 8.9 (8-16); ASPARTATE AMINOTRANSFERASE 78 U/L (15-37); CARBON DIOXIDE 27.6 mmol/L (21-32); CHLORIDE 107 mmol/L (98-107); CREATININE 0.8 mg/dL (0.6-1.3); GFR ARICAN-AMERICAN 129 mL/min (>90); GLUCOSE 99 mg/dL (74-106); LIPASE 136 U/L (73-393); POTASSIUM 4.5 mmol/L (3.5-5.1); SODIUM SERUM 139 mmol/L (136-145); TOTAL BILIRUBIN 3.1 mg/dL (0.0-1.0); UREA NITROGEN, BLOOD 17 mg/dL (7-18)
[2023-06-21 13:55] LABS: HEMOGLOBIN 11.4 g/dL (12.0-18.0); MEAN CORPUSCULAR HEMOGLOBIN 32 pg (27-31); MEAN CORPUSCULAR VOLUME 96.1 fL (80-94); RED BLOOD CELL COUNT(AUTO) 3.54 MIL/uL (4.20-6.10); WHITE BLOOD COUNT (AUTO) 4.3 K/uL (4.8-10.8)
[2023-06-21 13:56] LABS: MEAN CORPUSCULAR HGB CONC 34 g/dL (33-37); PLATELET COUNT (AUTO) 22 K/uL (140-450); RED CELL DISTRIBUTION WIDTH 15.7 % (11.6-13.7)
[2023-06-21 13:57] LABS: LYMPHOCYTES % (MANUAL) 14 % (20-46); MONOCYTES % (MANUAL) 11 % (5-12)
[2023-06-21] MEDS ORDERED: HYDROcodone/APAP 5/325 MG 1 TAB TAB PO ONE (15:50)
[2023-06-21 17:38] LABS: APPEARANCE,SPUN,BODY FLUID CLEAR (CLEAR); APPEARANCE,UNSPUN,BODY FLUID HAZY (CLEAR); SPECIMENTYPE,BODY FLUID ASCITES
[2023-06-21 17:39] LABS: COLOR,BODY FLUID LT YELLOW (LT YELLOW); GLUCOSE,BODY FLUID 106 mg/dL; POLYNUCLEAR, BODY FLUID 67 %; RBC, BODY FLUID 10000 /cu. mm.; TOTAL VOLUME,BODY FLUID 13 mL; WBC, BODY FLUID 200 /cu. mm.
[2023-06-21] MEDS ORDERED: HYDROcodone/APAP 5/325 MG 1 TAB TAB ONE (18:23)
[2023-06-21] MEDS ORDERED: LACTULOSE 20 GM/30 ML UDC PO SCH (20:10)
--- NOTE | 2023-06-21 20:29 | NUR ---
REPORT GIVEN TO AURELIA LE
--- NOTE | 2023-06-21 20:38 | NUR ---
Patient will be admitted to care of DR UMAÑA. Admited to TELE. Will go to [id number]. Belongings list completed. Report to AURELIA LE.
[2023-06-21 20:40] VITALS: PULSE 100; RESP 18; O2SAT 98
--- NOTE | 2023-06-21 20:40 | NUR ---
RECEIVED PATIENT FROMER NURSE FOR CONTINUITY OF CARE. ADMITTED WITH ABDOMINAL PAIN, NO COMPLAIN OF PAIN AT THIS TIME. PIV INTACT AND PATENT.WILL CONTINUE TO MONITOR
[2023-06-21] MEDS: FERROUS SULFATE 325 MG TABEC PO SCH (21:17)
[2023-06-22] VITALS: BP 136/78; PULSE 100; PULSE 105; RESP 18; O2SAT 94
--- NOTE | 2023-06-22 03:00 | NUR ---
PATIENT ASLEEP, NO DISTRESS NOTED
[2023-06-22 03:58] VITALS: PULSE 96
[2023-06-22 04:00] VITALS: BP 125/75; PULSE 97; RESP 18; O2SAT 96
--- NOTE | 2023-06-22 05:00 | NUR ---
PATIENT COMPLAIN OF 8/10 ABDOMINAL PAIN. MD NOTIFIED .
--- NOTE | 2023-06-22 05:50 | NUR ---
MD ORDERED TORADOL 30 MG IM ONCE. NOTED AND CARRIED OUT
[2023-06-22] MEDS ORDERED: KETOROLAC 30 MG/ML VIAL IM SCH (05:55)
--- NOTE | 2023-06-22 07:20 | NUR ---
RECEIVED PT FROM HEAD OF SCIENCE NURSE FOR CONTINUITY OF CARE. PT IN BED SLEEPING. AROUSABLE TO VOICE. RESPIRATIONS EVEN AND UNLABORED ON RA. SKIN WARM AND DRY, ABDOMEN DISTENDED. DENIES PAIN AT THIS TIME. IV ON L AC 20G, SALINE LOCK. SKIN WARM AND DRY. CALL LIGHT WITHIN REACH, ALL SAFETY PRECAUTIONS IN PLACE.
[2023-06-22 08:00] VITALS: BP 123/70; PULSE 89; PULSE 92; RESP 18; O2SAT 98
[2023-06-22 08:46] LABS: LYMPHOCYTES # (AUTO) 0.4 K/uL (2.0-11.5); MONOCYTES # (AUTO) 0.4 K/uL (0.8-1.0); NEUTROPHILS # (AUTO) 4.7 K/uL (1.8-7.7); WHITE BLOOD COUNT (AUTO) 5.5 K/uL (4.8-10.8)
[2023-06-22 08:51] LABS: BASOPHILS % (AUTO) 0.1 % (0.0-2.0); EOSINOPHILS % (AUTO) 0.4 % (0.0-4.0); HEMATOCRIT 28.5 % (36-52); HEMOGLOBIN 9.7 g/dL (12.0-18.0); MEAN CORPUSCULAR HEMOGLOBIN 33 pg (27-31); MEAN CORPUSCULAR HGB CONC 34 g/dL (33-37); MEAN CORPUSCULAR VOLUME 96.3 fL (80-94); MONOCYTES % (AUTO) 6.9 % (1.7-9.3); NEUTROPHILS % (AUTO) 85.6 % (42.2-75.2); RED BLOOD CELL COUNT(AUTO) 2.96 MIL/uL (4.20-6.10); RED CELL DISTRIBUTION WIDTH 15.9 % (11.6-13.7)
[2023-06-22 08:53] LABS: PLATELET COUNT (AUTO) 15 K/uL (140-450)
--- NOTE | 2023-06-22 08:57 | NUR ---
PATIENT HAS BEEN SCREENED AND CATEGORIZED LOW NUTRITION RISK. PATIENT WILL BE SEEN WITHIN 7 DAYS OF ADMISSION. 06/28/[address]
[2023-06-22 09:11] LABS: ANION GAP 9.2 (8-16); CARBON DIOXIDE 25.3 mmol/L (21-32); POTASSIUM 4.5 mmol/L (3.5-5.1)
[2023-06-22 09:16] LABS: MAGNESIUM 1.7 mg/dL (1.8-2.4); PHOSPHORUS 3.4 mg/dL (2.5-4.9)
[2023-06-22] MEDS: FERROUS SULFATE 325 MG TABEC PO SCH ×2 (09:26→21:05)
[2023-06-22] MEDS: PROPRANOLOL 20 MG TAB PO SCH ×3 (09:27→17:11)
[2023-06-22] MEDS: SPIRONOLACTONE 50 MG TAB PO SCH (09:27)
[2023-06-22] MEDS: GABAPENTIN 100 MG CAP PO SCH ×3 (09:27→17:11)
[2023-06-22] MEDS: LACTULOSE 20 GM/30 ML UDC PO SCH ×2 (09:28→21:04)
[2023-06-22] MEDS: FUROSEMIDE 40 MG TAB PO SCH (09:28)
[2023-06-22] MEDS: AZITHROMYCIN 250 MG TAB PO SCH (09:28)
--- NOTE | 2023-06-22 09:30 | NUR ---
ALL ORAL MEDS GIVEN. PT TOLERATING WELL.
--- NOTE | 2023-06-22 10:42 | NUR ---
IV ABX GIVEN BY REY PALACIOS.
--- NOTE | 2023-06-22 13:00 | NUR ---
SCHEDULED MEDS GIVEN. PT TOLERATING WELL. DENIES PAIN AT THIS TIME.
[2023-06-22 16:00] VITALS: BP 102/66; PULSE 63; RESP 17; TEMP 97.5; O2SAT 98
--- NOTE | 2023-06-22 19:09 | NUR ---
ENDORSED PT TO DRAWING OPERATOR NURSE FOR CONTINUITY OF CARE. PT IS STABLE.
--- NOTE | 2023-06-22 19:10 | NUR ---
RECEIVED PT FROM MORNING SHIFT NURSE. PT IS AOX4, AMBULATORY, ABLE TO VERBALIZE NEEDS AND ABLE TO FOLLOW COMMANDS. PT IS ON ROOM AIR AND ON HEPATIC DIET. PT HAS IV ON LEFT AC GAUGE 20, SALINE LOCK. PT SKIN IS INTACT. PT COMPLAIN OF ABDOMINAL PAIN. NO S/S OF RESPIRATORY DISTRESS NOTED. ALL SAFETY MEASURES IMPLEMENTED. BED IN LOW POSITION AND BED WHEELS ON LOCK.
[2023-06-22 20:00] VITALS: PULSE 68; RESP 17; O2SAT 98
--- NOTE | 2023-06-22 20:44 | NUR ---
NOTIFIED DR. GRANDE THAT HAS ABDOMINAL PAIN AND THERE'S NO PRN PAIN MED. ALSO. KETOROLAC 30MG/ML WAS ALSO . DR. GRANDE WANTS TO RENEW IT AND GIVE IT Q12H. ALL SAFETY MEASURES IMPLEMENTED. BED IN LOW POSITION AND BED WHEELS ON LOCK.
[2023-06-22] MEDS ORDERED: KETOROLAC 30 MG/ML VIAL IVP PRN (21:05)
--- NOTE | 2023-06-22 21:05 | NUR ---
ALL SCHEDULED AND PRESCRIBED MEDICATION WAS GIVEN TO PT PER MD ORDER. ALL SAFETY MEASURES IMPLEMENTED. BED IN LOW POSITION AND BED WHEELS ON LOCK.
--- NOTE | 2023-06-22 21:39 | NUR ---
KETOROLAC PRN WAS GIVEN TO PT DUE TO ABDOMINAL PAIN WITH PAIN SCALE OF 6/10. ALL SAFETY MEASURES IMPLEMENTED. BED IN LOW POSITION AND BED WHEELS ON LOCK.
--- NOTE | 2023-06-22 22:30 | NUR ---
PT WALK AROUND FOR EXERCISE BECAUSE HIS TRIED LYING DOWN ON BED ALL DAY. REMIND THE PT TO BE CAREFUL WHILE WALKING TO PREVENT FALL. PT VERBALIZE UNDERSTANDING.
--- NOTE | 2023-06-22 23:00 | NUR ---
PT BACK TO HIS ROOM. NO COMPLAIN OF PAIN. NO S/S OF RESPIRATORY DISTRESS NOTED. ALL SAFETY MEASURES IMPLEMENTED. BED IN LOW POSITION AND BED WHEELS ON LOCK.
[2023-06-23] VITALS: BP 100/61; PULSE 68; RESP 18; TEMP 97.8; O2SAT 98
--- NOTE | 2023-06-23 02:00 | NUR ---
PT IS ON SLEEP. CHEST RISE AND FALL SYMMTRICALLY NOTED. RESPIRATION IS EVEN AND UNLABORED. ALL SAFETY MEASURES IMPLEMENTED. BED IN LOW POSITION, BED WHEELS ON LOCK AND CALL LIGHT WITHIN REACH.
--- NOTE | 2023-06-23 04:00 | NUR ---
PT WAS GIVEN SANDWICH AND JUICE PER PT REQUEST. NO COMPLAIN OF PAIN AND NO S/S OF RESPIRATORY DISTRESS NOTED. ALL SAFETY MEASURES IMPLEMENTED. BED IN LOW POSITION, BED WHEELS ON LOCK AND CALL LIGHT WITHIN REACH.
[2023-06-23 06:45] LABS: ANION GAP 7.6 (8-16); CREATININE 1.2 mg/dL (0.6-1.3); POTASSIUM 4.6 mmol/L (3.5-5.1)
--- NOTE | 2023-06-23 07:25 | NUR ---
PT IS STABLE. ENDORSED PT TO MORNING SHIFT NURSE FOR CONTINUITY OF CARE.
[2023-06-23 07:27] LABS: CORRECTED WHITE BLOOD COUNT 4.7 K/uL (4.5-11.0); HEMATOCRIT 28.6 % (36-52); HEMOGLOBIN 9.7 g/dL (12.0-18.0); MEAN CORPUSCULAR HEMOGLOBIN 33 pg (27-31); MEAN CORPUSCULAR HGB CONC 34 g/dL (33-37); MEAN CORPUSCULAR VOLUME 96.3 fL (80-94); RED BLOOD CELL COUNT(AUTO) 2.97 MIL/uL (4.20-6.10); RED CELL DISTRIBUTION WIDTH 15.8 % (11.6-13.7); WHITE BLOOD COUNT (AUTO) 4.7 K/uL (4.8-10.8)
[2023-06-23 07:28] LABS: BASOPHILS % (AUTO) 0.5 % (0.0-2.0); EOSINOPHILS % (AUTO) 3.1 % (0.0-4.0); LYMPHOCYTES % (AUTO) 9.4 % (20.5-51.1); PLATELET COUNT (AUTO) 21 K/uL (140-450)
[2023-06-23 07:29] LABS: EOSINOPHILS # (AUTO) 0.1 K/uL (0-0.4); LYMPHOCYTES # (AUTO) 0.4 K/uL (2.0-11.5); MONOCYTES # (AUTO) 0.7 K/uL (0.8-1.0); NEUTROPHILS # (AUTO) 3.4 K/uL (1.8-7.7)
[2023-06-23 08:00] VITALS: BP 97/55; PULSE 63; PULSE 67; RESP 18; RESP 19; TEMP 97.7; O2SAT 98; O2SAT 99
--- NOTE | 2023-06-23 08:20 | NUR ---
MORNING BP MEDS HELD, PT BP BELOW SET PARAMETERS FOR MEDICATION ADMINISTRATION. INFORMED DR GARZA. PER DR GARZA MONITOR BP.
--- NOTE | 2023-06-23 08:50 | NUR ---
PT TO STAY IN SEATED UPRIGHT POSITION PER DR GARZA.
[2023-06-23] MEDS: LACTULOSE 20 GM/30 ML UDC PO SCH (09:00)
[2023-06-23] MEDS: SPIRONOLACTONE 50 MG TAB PO SCH (09:00)
[2023-06-23] MEDS: PROPRANOLOL 20 MG TAB PO SCH (09:00)
[2023-06-23] MEDS: FUROSEMIDE 40 MG TAB PO SCH (09:00)
[2023-06-23] MEDS: AZITHROMYCIN 250 MG TAB PO SCH (09:52)
[2023-06-23] MEDS: FERROUS SULFATE 325 MG TABEC PO SCH (09:52)
[2023-06-23] MEDS: GABAPENTIN 100 MG CAP PO SCH (09:52)
--- NOTE | 2023-06-23 10:00 | NUR ---
ORTHOSTATIC BP TAKEN, PT BP STABLE.
--- NOTE | 2023-06-23 11:00 | NUR ---
BP TAKEN PT LAYING DOWN. BP IS STABLE.
[2023-06-23 11:02] VITALS: BP 97/55; PULSE 63; RESP 18; TEMP 97.7
--- NOTE | 2023-06-23 11:30 | NUR ---
ORTHOSTATIC BP RETAKEN. PT BP WNL, INFORMED DR GARZA.
--- NOTE | 2023-06-23 12:50 | NUR ---
PT BELONGINGS GATHERED. IV AND NAME BAND REMOVED. DISCUSSED DC PACKET, ALL QUESTIONS ANSWERED. PER DR GARZA PT TO FOLLOW UP WITH PCP DELIA, PT INFORMED. VITALS STABLE AT TIME OF DISCHARGE. PT SAID HIS IS HERE FOR HIM AND [facility]. PT IS STABLE. DC TO HOME.
== END 2023-06-23 12:30 | disposition home or self-care (01) | DRG 280 ==
LOC: MED 12:26 → MTU 20:04
PROVIDERS: ADMIT Family Medicine; ATTEND Family Medicine
PROC: 0W9G3ZZ Drainage of Peritoneal Cavity, Percutaneous Approach (ICD-10-PCS; principal; 2023-06-21)
DX: K70.31 Alcoholic cirrhosis of liver with ascites (principal); E43 Unspecified severe protein-calorie malnutrition; J18.9 Pneumonia, unspecified organism; D63.8 Anemia in other chronic diseases classified elsewhere; E11.40 Type 2 diabetes mellitus with diabetic neuropathy, unspecified; K80.20 Calculus of gallbladder without cholecystitis without obstruction; B19.20 Unspecified viral hepatitis C without hepatic coma; F14.10 Cocaine abuse, uncomplicated; I10 Essential (primary) hypertension; Z68.27 Body mass index [BMI] 27.0-27.9, adult; Z79.899 Other long term (current) drug therapy
CPT/HCPCS: 36415; 49083; 71045; 76705; 80048; 80053; 82140; 82945; 83690; 83735; 83880; 84100; 84157; 84484; 85025; 85610; 87070; 87075; 87081; 89051; 93005; 99285; J0696; J1885; J7060; Q0092

== ENCOUNTER 2023-07-03 09:36 | Inpatient (IN) | payer MEDICAID ==
[~2023-07-03] VITALS: Ht 170.2 cm; Wt 82.6 kg
[2023-07-03 09:39] VITALS: BP 137/80; PULSE 82; RESP 16; TEMP 98.1; O2SAT 99
[2023-07-03 10:17] LABS: BASOPHILS % (AUTO) 0.3 % (0.0-2.0); EOSINOPHILS # (AUTO) 0.1 K/uL (0-0.4); EOSINOPHILS % (AUTO) 2.4 % (0.0-4.0); HEMOGLOBIN 10.2 g/dL (12.0-18.0); LYMPHOCYTES # (AUTO) 0.2 K/uL (2.0-11.5); LYMPHOCYTES % (AUTO) 8.9 % (20.5-51.1); MEAN CORPUSCULAR HEMOGLOBIN 32 pg (27-31); MEAN CORPUSCULAR HGB CONC 34 g/dL (33-37); MEAN CORPUSCULAR VOLUME 95.4 fL (80-94); MONOCYTES # (AUTO) 0.2 K/uL (0.8-1.0); MONOCYTES % (AUTO) 8.6 % (1.7-9.3); NEUTROPHILS # (AUTO) 2.2 K/uL (1.8-7.7); NEUTROPHILS % (AUTO) 79.8 % (42.2-75.2); PLATELET COUNT (AUTO) 20 K/uL (140-450); RED BLOOD CELL COUNT(AUTO) 3.15 MIL/uL (4.20-6.10); RED CELL DISTRIBUTION WIDTH 16.3 % (11.6-13.7); WHITE BLOOD COUNT (AUTO) 2.8 K/uL (4.8-10.8)
[2023-07-03 10:28] LABS: ALBUMIN 1.5 g/dL (3.4-5.0); ANION GAP 4.3 (8-16); CALCIUM 7.3 mg/dL (8.5-10.1); CARBON DIOXIDE 28.7 mmol/L (21-32); CREATININE 0.8 mg/dL (0.6-1.3); TOTAL BILIRUBIN 2.2 mg/dL (0.0-1.0); TOTAL PROTEIN, SERUM 7.6 g/dL (6.4-8.2)
[2023-07-03 13:26] VITALS: PULSE 75; RESP 18; O2SAT 100
[2023-07-03 13:53] VITALS: BP 135/92; PULSE 75; RESP 18; TEMP 97.4; O2SAT 100
[2023-07-03] MEDS: NACL 0.9% 1,000 ML IV SCH (14:21)
[2023-07-03 16:00] VITALS: BP 142/92; PULSE 82; RESP 18; TEMP 97.9; O2SAT 94
[2023-07-03 20:00] VITALS: BP 151/86; PULSE 81; RESP 18; TEMP 97.7; O2SAT 98
[2023-07-03] MEDS ORDERED: ACETAMINOPHEN 325 MG TAB PO PRN (21:10)
[2023-07-03] MEDS ORDERED: ONDANSETRON 4 MG/2 ML VIAL IVP PRN (21:10)
[2023-07-03 21:52] LABS: INR 1.29 (0.8-1.2); PARTIAL THROMBOPLASTIN TIME 28.4 secs (22-35.6); PROTHROMBIN TIME 13.3 secs (10.8-13.4)
[2023-07-03 21:56] LABS: LACTIC ACID 1.3 mmol/L (0.4-2.0)
[2023-07-03 22:03] LABS: AMYLASE 50 U/L (25-115); CHOL/HDL RATIO 1.8 (1-4.5); CHOLESTEROL 71 mg/dL (<200); FREE T4 (FREE THYROXINE) 1.51 ng/dL (0.76-1.46); HDL CHOLESTEROL 39 mg/dL (40-60); LDL (CALC) 26 mg/dL (60-100); LIPASE 162 U/L (73-393); THYROID STIMULATING HORMONE 3.01 uIU/mL (0.34-3.74); TRIGLYCERIDES 34 mg/dL (30-150)
[2023-07-04] MEDS: NACL 0.9% 1,000 ML IV SCH ×2 (00:10→02:57)
[2023-07-04] MEDS: HYDROcodone/APAP 7.5/325 MG 1 TAB PO PRN ×3 (02:56→16:36)
[2023-07-04 04:00] VITALS: BP 110/75; PULSE 78; RESP 18; TEMP 96.9; O2SAT 98
[2023-07-04 06:38] LABS: BASOPHILS % (AUTO) 0.5 % (0.0-2.0); EOSINOPHILS # (AUTO) 0.1 K/uL (0-0.4); EOSINOPHILS % (AUTO) 2.7 % (0.0-4.0); HEMOGLOBIN 9.4 g/dL (12.0-18.0); LYMPHOCYTES # (AUTO) 0.3 K/uL (2.0-11.5); LYMPHOCYTES % (AUTO) 8.5 % (20.5-51.1); MEAN CORPUSCULAR HEMOGLOBIN 32 pg (27-31); MEAN CORPUSCULAR HGB CONC 34 g/dL (33-37); MEAN CORPUSCULAR VOLUME 95.6 fL (80-94); MONOCYTES # (AUTO) 0.2 K/uL (0.8-1.0); MONOCYTES % (AUTO) 7.5 % (1.7-9.3); NEUTROPHILS # (AUTO) 2.7 K/uL (1.8-7.7); NEUTROPHILS % (AUTO) 80.8 % (42.2-75.2); RED BLOOD CELL COUNT(AUTO) 2.93 MIL/uL (4.20-6.10); RED CELL DISTRIBUTION WIDTH 16.4 % (11.6-13.7); WHITE BLOOD COUNT (AUTO) 3.3 K/uL (4.8-10.8)
[2023-07-04 06:39] LABS: ANION GAP 6.8 (8-16); CALCIUM 7.1 mg/dL (8.5-10.1); CARBON DIOXIDE 25.3 mmol/L (21-32); CREATININE 0.7 mg/dL (0.6-1.3); POTASSIUM 4.1 mmol/L (3.5-5.1)
[2023-07-04 06:53] LABS: MAGNESIUM 1.7 mg/dL (1.8-2.4); PHOSPHORUS 2.9 mg/dL (2.5-4.9)
[2023-07-04 06:55] LABS: PLATELET COUNT (AUTO) 19 K/uL (140-450)
[2023-07-04 08:00] VITALS: BP_SYST 111; BP_SYST 78; BP_DIAS 62; PULSE 75; PULSE 77; RESP 18; TEMP 97.2; TEMP 98.6; O2SAT 98
[2023-07-04] MEDS ORDERED: MAGNESIUM OXIDE 400 MG TAB PO SCH (08:00)
[2023-07-04] MEDS: PANTOPRAZOLE 40 MG INJ VIAL IVP SCH (09:27)
[2023-07-04] MEDS: DOCUSATE SODIUM 100 MG GELCAP PO SCH ×2 (09:28→20:33)
[2023-07-04 10:16] LABS: APPEARANCE,URINE CLEAR (CLEAR); BILIRUBIN,URINE 2+ (NEGATIVE); BLOOD, URINE NEGATIVE (NEGATIVE); COLOR,URINE YELLOW (YELLOW); LEUKOCYTE ESTERASE ,URINE NEGATIVE (NEGATIVE); NITRITE, URINE NEGATIVE (NEGATIVE); PROTEIN,URINE TRACE (NEGATIVE); UGLUCOSE NEGATIVE (NEGATIVE)
[2023-07-04 10:25] LABS: AMPHETAMINE, URINE NEGATIVE ng/ml (NEG <=1000); BARBITURATE, URINE NEGATIVE ng/ml (NEG <=200); BENZODIAZEPINE, URINE NEGATIVE ng/mL (NEG <=200); CANNABINOID, URINE NEGATIVE ng/mL (NEG <=50); COCAINE, URINE POSITIVE ng/mL (NEG <=300); OPIATE, URINE POSITIVE ng/mL (NEG <=2000); PHENCYCLIDINE SCREEN,URINE NEGATIVE ng/mL (NEG <=25)
[2023-07-04 10:42] LABS: ICTOTEST NEGATIVE (NEGATIVE)
[2023-07-04 10:43] LABS: BACTERIA,URINE FEW /HPF (None Seen); MUCUS,URINE None Seen /LPF (None Seen); RBC,URINE 0-5 /HPF (0-5); SQUAMOUS EPITHELIAL CELL,UR None Seen /LPF (0-3 (FEW)); TRICHOMONAS,URINE None Seen /HPF (None Seen); WBC,URINE 0-5 /HPF (0-5); WHITE BLOOD CELL CASTS,URINE None Seen /LPF (None Seen)
[2023-07-04 10:44] LABS: YEAST,URINE Moderate /HPF (None Seen)
[2023-07-04 12:00] VITALS: PULSE 77
[2023-07-04 16:00] VITALS: BP 119/75; PULSE 75; RESP 18; TEMP 98.2; O2SAT 99
[2023-07-04] MEDS ORDERED: ONDANSETRON 4 MG/2 ML VIAL IVP PRN (16:40)
[2023-07-04] MEDS ORDERED: POTASSIUM CHLORIDE 10 MEQ TABER PO PRN (16:40)
[2023-07-04] MEDS ORDERED: ZOLPIDEM 10 MG TAB PO PRN (16:40)
[2023-07-04] MEDS ORDERED: LORazepam 2 MG/ML VIAL IVP PRN (16:40)
[2023-07-04] MEDS ORDERED: DOCUSATE SODIUM 100 MG GELCAP PO PRN (16:40)
[2023-07-04 20:00] VITALS: BP 116/77; PULSE 73; RESP 18; TEMP 98; O2SAT 99
[2023-07-05] MEDS: HYDROcodone/APAP 7.5/325 MG 1 TAB PO PRN (02:52)
[2023-07-05 04:00] VITALS: BP 138/75; PULSE 82; RESP 18; TEMP 97.7; O2SAT 98
[2023-07-05 06:08] LABS: BASOPHILS % (AUTO) 0.5 % (0.0-2.0); EOSINOPHILS # (AUTO) 0.1 K/uL (0-0.4); EOSINOPHILS % (AUTO) 2.4 % (0.0-4.0); HEMATOCRIT 30.6 % (36-52); HEMOGLOBIN 10.4 g/dL (12.0-18.0); LYMPHOCYTES # (AUTO) 0.3 K/uL (2.0-11.5); LYMPHOCYTES % (AUTO) 9.9 % (20.5-51.1); MEAN CORPUSCULAR HEMOGLOBIN 33 pg (27-31); MEAN CORPUSCULAR HGB CONC 34 g/dL (33-37); MEAN CORPUSCULAR VOLUME 96.6 fL (80-94); MONOCYTES # (AUTO) 0.2 K/uL (0.8-1.0); NEUTROPHILS # (AUTO) 2.4 K/uL (1.8-7.7); NEUTROPHILS % (AUTO) 79.2 % (42.2-75.2); PLATELET COUNT (AUTO) 23 K/uL (140-450); RED BLOOD CELL COUNT(AUTO) 3.17 MIL/uL (4.20-6.10); RED CELL DISTRIBUTION WIDTH 16.1 % (11.6-13.7)
[2023-07-05 06:41] LABS: ALBUMIN 1.5 g/dL (3.4-5.0); ANION GAP 9.8 (8-16); CALCIUM 7.4 mg/dL (8.5-10.1); CARBON DIOXIDE 23.9 mmol/L (21-32); CREATININE 0.8 mg/dL (0.6-1.3); POTASSIUM 4.7 mmol/L (3.5-5.1); TOTAL BILIRUBIN 2.2 mg/dL (0.0-1.0); TOTAL PROTEIN, SERUM 7.6 g/dL (6.4-8.2)
[2023-07-05 06:43] LABS: MAGNESIUM 1.7 mg/dL (1.8-2.4); PHOSPHORUS 2.9 mg/dL (2.5-4.9)
[2023-07-05 08:00] VITALS: BP 120/82; PULSE 83; RESP 18; TEMP 97.3; O2SAT 97
[2023-07-05] MEDS: DOCUSATE SODIUM 100 MG GELCAP PO SCH ×2 (10:01→21:00)
[2023-07-05] MEDS: PANTOPRAZOLE 40 MG INJ VIAL IVP SCH (10:02)
[2023-07-05] MEDS: MORPHINE SULFATE 2 MG/ML SYR IVP PRN ×2 (10:03→20:59)
[2023-07-05] MEDS: MAG SULF 2000 MG/WATER PREMIX 50 ML IV PRN (19:35)
[2023-07-05 20:00] VITALS: BP 125/78; PULSE 18; PULSE 81; RESP 20; TEMP 98.3; O2SAT 96
[2023-07-06 05:32] LABS: BASOPHILS % (AUTO) 0.5 % (0.0-2.0); EOSINOPHILS # (AUTO) 0.1 K/uL (0-0.4); EOSINOPHILS % (AUTO) 2.8 % (0.0-4.0); HEMATOCRIT 29.3 % (36-52); LYMPHOCYTES # (AUTO) 0.3 K/uL (2.0-11.5); LYMPHOCYTES % (AUTO) 10.3 % (20.5-51.1); MEAN CORPUSCULAR HEMOGLOBIN 32 pg (27-31); MEAN CORPUSCULAR HGB CONC 34 g/dL (33-37); MEAN CORPUSCULAR VOLUME 94.7 fL (80-94); MONOCYTES # (AUTO) 0.2 K/uL (0.8-1.0); MONOCYTES % (AUTO) 7.2 % (1.7-9.3); NEUTROPHILS # (AUTO) 2.6 K/uL (1.8-7.7); NEUTROPHILS % (AUTO) 79.2 % (42.2-75.2); RED CELL DISTRIBUTION WIDTH 16.3 % (11.6-13.7); WHITE BLOOD COUNT (AUTO) 3.2 K/uL (4.8-10.8)
[2023-07-06] MEDS: MORPHINE SULFATE 2 MG/ML SYR IVP PRN ×4 (05:34→21:04)
[2023-07-06 05:38] LABS: PLATELET COUNT (AUTO) 18 K/uL (140-450)
[2023-07-06 05:52] LABS: ANION GAP 7.5 (8-16); CALCIUM 7.3 mg/dL (8.5-10.1); CARBON DIOXIDE 25.5 mmol/L (21-32); CREATININE 0.8 mg/dL (0.6-1.3)
[2023-07-06 05:59] LABS: MAGNESIUM 1.9 mg/dL (1.8-2.4); PHOSPHORUS 2.7 mg/dL (2.5-4.9)
[2023-07-06 08:00] VITALS: BP 108/73; PULSE 80; RESP 18; TEMP 97.4; O2SAT 99
[2023-07-06] MEDS: PANTOPRAZOLE 40 MG INJ VIAL IVP SCH (09:14)
[2023-07-06] MEDS: DOCUSATE SODIUM 100 MG GELCAP PO SCH ×2 (09:14→20:49)
[2023-07-06] MEDS ORDERED: ALBUMIN HUMAN 25% 50 ML IV SCH (10:40)
[2023-07-06 11:06] LABS: INR 1.23 (0.8-1.2); PROTHROMBIN TIME 12.8 secs (10.8-13.4)
[2023-07-06 14:47] VITALS: BP 108/73; PULSE 80; RESP 18; TEMP 97.4; O2SAT 99
[2023-07-06 16:00] VITALS: BP 135/96; PULSE 75; RESP 18; TEMP 97.5; O2SAT 99
[2023-07-06] MEDS: GABAPENTIN 100 MG CAP PO SCH (16:48)
[2023-07-06] MEDS: PROPRANOLOL 20 MG TAB PO SCH (16:48)
[2023-07-06] MEDS: FUROSEMIDE 40 MG TAB PO SCH (16:48)
[2023-07-06 20:00] VITALS: BP 120/76; PULSE 59; RESP 18; TEMP 97.8; O2SAT 97; O2SAT 98
[2023-07-06] MEDS: FERROUS SULFATE 325 MG TABEC PO SCH (20:49)
[2023-07-07] MEDS: MORPHINE SULFATE 2 MG/ML SYR IVP PRN ×2 (01:27→05:34)
[2023-07-07 04:00] VITALS: BP 139/94; PULSE 66; RESP 16; TEMP 98; O2SAT 98
[2023-07-07 06:26] LABS: BASOPHILS % (AUTO) 0.7 % (0.0-2.0); EOSINOPHILS # (AUTO) 0.1 K/uL (0-0.4); EOSINOPHILS % (AUTO) 3.2 % (0.0-4.0); HEMATOCRIT 31.5 % (36-52); HEMOGLOBIN 10.7 g/dL (12.0-18.0); LYMPHOCYTES # (AUTO) 0.4 K/uL (2.0-11.5); LYMPHOCYTES % (AUTO) 10.6 % (20.5-51.1); MEAN CORPUSCULAR HEMOGLOBIN 32 pg (27-31); MEAN CORPUSCULAR HGB CONC 34 g/dL (33-37); MEAN CORPUSCULAR VOLUME 95.3 fL (80-94); MONOCYTES # (AUTO) 0.3 K/uL (0.8-1.0); MONOCYTES % (AUTO) 9.5 % (1.7-9.3); NEUTROPHILS # (AUTO) 2.6 K/uL (1.8-7.7); PLATELET COUNT (AUTO) 21 K/uL (140-450); RED CELL DISTRIBUTION WIDTH 16.7 % (11.6-13.7); WHITE BLOOD COUNT (AUTO) 3.5 K/uL (4.8-10.8)
[2023-07-07 06:37] LABS: ANION GAP 6.8 (8-16); CALCIUM 7.4 mg/dL (8.5-10.1); CARBON DIOXIDE 28.4 mmol/L (21-32); CREATININE 0.9 mg/dL (0.6-1.3); POTASSIUM 4.2 mmol/L (3.5-5.1)
[2023-07-07 06:42] LABS: MAGNESIUM 1.7 mg/dL (1.8-2.4); PHOSPHORUS 2.9 mg/dL (2.5-4.9)
[2023-07-07 08:00] VITALS: BP 107/66; PULSE 62; PULSE 89; RESP 18; TEMP 97.4; O2SAT 100; O2SAT 96
[2023-07-07] MEDS ORDERED: SPIRONOLACTONE 50 MG TAB PO SCH (09:00)
[2023-07-07] MEDS: PANTOPRAZOLE 40 MG INJ VIAL IVP SCH (09:13)
[2023-07-07] MEDS: SPIRONOLACTONE 50 MG TAB PO SCH (09:14)
[2023-07-07] MEDS: FUROSEMIDE 40 MG TAB PO SCH (09:14)
[2023-07-07] MEDS: DOCUSATE SODIUM 100 MG GELCAP PO SCH ×2 (09:14→22:04)
[2023-07-07] MEDS: FERROUS SULFATE 325 MG TABEC PO SCH ×2 (09:15→22:05)
[2023-07-07] MEDS: GABAPENTIN 100 MG CAP PO SCH ×3 (09:15→17:49)
[2023-07-07] MEDS: PROPRANOLOL 20 MG TAB PO SCH ×3 (09:15→17:49)
[2023-07-07] MEDS: MAG SULF 2000 MG/WATER PREMIX 50 ML IV PRN (09:19)
[2023-07-07 16:00] VITALS: BP 111/69; PULSE 54; RESP 18; TEMP 97.9; O2SAT 96
[2023-07-07 20:00] VITALS: BP 115/72; PULSE 60; RESP 18; TEMP 97.5; O2SAT 100
[2023-07-08 01:00] VITALS: BP 99/69; PULSE 65; RESP 18; TEMP 97.6; O2SAT 95
[2023-07-08] MEDS: HYDROcodone/APAP 7.5/325 MG 1 TAB PO PRN (01:01)
[2023-07-08 04:00] VITALS: BP 105/66; PULSE 65; RESP 18; TEMP 97.8; O2SAT 95
[2023-07-08 06:30] LABS: BASOPHILS % (AUTO) 0.7 % (0.0-2.0); EOSINOPHILS # (AUTO) 0.1 K/uL (0-0.4); EOSINOPHILS % (AUTO) 3.2 % (0.0-4.0); HEMATOCRIT 31.3 % (36-52); HEMOGLOBIN 10.5 g/dL (12.0-18.0); LYMPHOCYTES # (AUTO) 0.5 K/uL (2.0-11.5); MEAN CORPUSCULAR HEMOGLOBIN 32 pg (27-31); MEAN CORPUSCULAR HGB CONC 34 g/dL (33-37); MEAN CORPUSCULAR VOLUME 95.4 fL (80-94); MONOCYTES # (AUTO) 0.4 K/uL (0.8-1.0); MONOCYTES % (AUTO) 10.3 % (1.7-9.3); NEUTROPHILS # (AUTO) 2.8 K/uL (1.8-7.7); NEUTROPHILS % (AUTO) 73.8 % (42.2-75.2); PLATELET COUNT (AUTO) 30 K/uL (140-450); RED BLOOD CELL COUNT(AUTO) 3.28 MIL/uL (4.20-6.10); RED CELL DISTRIBUTION WIDTH 16.3 % (11.6-13.7); WHITE BLOOD COUNT (AUTO) 3.9 K/uL (4.8-10.8)
[2023-07-08 06:33] LABS: ANION GAP 6.2 (8-16); CALCIUM 7.4 mg/dL (8.5-10.1); CARBON DIOXIDE 30.1 mmol/L (21-32); POTASSIUM 4.3 mmol/L (3.5-5.1)
[2023-07-08 06:34] LABS: MAGNESIUM 1.7 mg/dL (1.8-2.4); PHOSPHORUS 2.7 mg/dL (2.5-4.9)
[2023-07-08 08:00] VITALS: BP 104/71; PULSE 65; PULSE 88; RESP 18; TEMP 97.5; O2SAT 99
[2023-07-08] MEDS: PROPRANOLOL 20 MG TAB PO SCH ×4 (09:00→13:00)
[2023-07-08] MEDS: DOCUSATE SODIUM 100 MG GELCAP PO SCH ×2 (09:00→09:27)
[2023-07-08] MEDS: PANTOPRAZOLE 40 MG INJ VIAL IVP SCH (09:26)
[2023-07-08] MEDS: FERROUS SULFATE 325 MG TABEC PO SCH (09:27)
[2023-07-08] MEDS: FUROSEMIDE 40 MG TAB PO SCH (09:27)
[2023-07-08] MEDS: GABAPENTIN 100 MG CAP PO SCH ×2 (09:27→13:49)
[2023-07-08] MEDS: SPIRONOLACTONE 50 MG TAB PO SCH (09:28)
== END 2023-07-08 15:45 | disposition home or self-care (01) | DRG 280 ==
LOC: MED 09:36 → MTU 11:46
PROC: 30233R1 Transfusion of Nonautologous Platelets into Peripheral Vein, Percutaneous Approach (ICD-10-PCS; 2023-07-07)
PROC: 0W9G3ZZ Drainage of Peritoneal Cavity, Percutaneous Approach (ICD-10-PCS; principal; 2023-07-08)
DX: K70.31 Alcoholic cirrhosis of liver with ascites (principal); D61.818 Other pancytopenia; E43 Unspecified severe protein-calorie malnutrition; B19.20 Unspecified viral hepatitis C without hepatic coma; I10 Essential (primary) hypertension; F11.10 Opioid abuse, uncomplicated; K80.20 Calculus of gallbladder without cholecystitis without obstruction; F10.10 Alcohol abuse, uncomplicated; Z68.28 Body mass index [BMI] 28.0-28.9, adult; Z79.899 Other long term (current) drug therapy
CPT/HCPCS: 36415; 36430; 49083; 71045; 76700; 76705; 80048; 80053; 80305; 81001; 82140; 82150; 83036; 83605; 83690; 83735; 83880; 84100; 84439; 84443; 84484; 85025; 85049; 85610; 85730; 86886; 86900; 86901; 87040; 87081; 87086; 93005; 99285; C9113; J2001; J2270; J2405; J3475; P9035; P9046; Q0092

== ENCOUNTER 2023-08-18 14:49 | Inpatient (IN) | payer MEDICAID ==
[~2023-08-18] VITALS: Ht 175.3 cm; Wt 83.0 kg
[~2023-08-18 14:49] MED LIST changes: -SPIR50TA PO
[2023-08-18 15:26] VITALS: BP 143/94; PULSE 83; RESP 16; TEMP 98.4; O2SAT 98
[2023-08-18 16:56] LABS: BASOPHILS % (AUTO) 0.4 % (0.0-2.0); EOSINOPHILS # (AUTO) 0.1 K/uL (0-0.4); EOSINOPHILS % (AUTO) 2.3 % (0.0-4.0); HEMOGLOBIN 11.1 g/dL (12.0-18.0); LYMPHOCYTES # (AUTO) 0.2 K/uL (2.0-11.5); LYMPHOCYTES % (AUTO) 8.1 % (20.5-51.1); MEAN CORPUSCULAR HEMOGLOBIN 32 pg (27-31); MEAN CORPUSCULAR HGB CONC 34 g/dL (33-37); MEAN CORPUSCULAR VOLUME 94.2 fL (80-94); MONOCYTES # (AUTO) 0.3 K/uL (0.8-1.0); MONOCYTES % (AUTO) 9.6 % (1.7-9.3); NEUTROPHILS # (AUTO) 2.4 K/uL (1.8-7.7); NEUTROPHILS % (AUTO) 79.6 % (42.2-75.2); RED CELL DISTRIBUTION WIDTH 17.4 % (11.6-13.7)
[2023-08-18 16:58] LABS: PLATELET COUNT (AUTO) 12 K/uL (140-450)
[2023-08-18 17:08] VITALS: O2SAT 98
[2023-08-18 17:27] LABS: ALBUMIN 1.8 g/dL (3.4-5.0); ANION GAP 6.5 (8-16); CALCIUM 7.7 mg/dL (8.5-10.1); CARBON DIOXIDE 27.1 mmol/L (21-32); CREATININE 0.8 mg/dL (0.6-1.3); POTASSIUM 3.6 mmol/L (3.5-5.1); TOTAL BILIRUBIN 3.9 mg/dL (0.0-1.0); TOTAL PROTEIN, SERUM 8.7 g/dL (6.4-8.2)
[2023-08-18] MEDS ORDERED: DOCUSATE SODIUM 100 MG GELCAP PO PRN (18:05)
[2023-08-18] MEDS ORDERED: ONDANSETRON 4 MG/2 ML VIAL IM/IVP PRN (18:05)
[2023-08-18] MEDS ORDERED: guaiFENesin DM 200/20 MG-10 ML 10 ML UDC PO PRN (18:05)
[2023-08-18] MEDS ORDERED: POTASSIUM CHLORIDE 10 MEQ TABER PO PRN (18:05)
[2023-08-18] MEDS ORDERED: ACETAMINOPHEN 325 MG TAB PO PRN (18:05)
[2023-08-18 18:35] LABS: AMYLASE 49 U/L (25-115); CHOLESTEROL 84 mg/dL (<200); FREE T4 (FREE THYROXINE) 1.61 ng/dL (0.76-1.46); HDL CHOLESTEROL 42 mg/dL (40-60); LDL (CALC) 33 mg/dL (60-100); MAGNESIUM 1.7 mg/dL (1.8-2.4); PHOSPHORUS 2.9 mg/dL (2.5-4.9); TRIGLYCERIDES 48 mg/dL (30-150)
[2023-08-18 18:50] LABS: INR 1.19 (0.8-1.2); PARTIAL THROMBOPLASTIN TIME 27.9 secs (22-35.6); PROTHROMBIN TIME 12.4 secs (10.8-13.4)
[2023-08-18] MEDS ORDERED: LACT10SO11 PO (18:50)
[2023-08-18] MEDS ORDERED: FURO40TA9 PO (18:50)
[2023-08-18] MEDS ORDERED: GABA-636 PO (18:50)
[2023-08-18] MEDS ORDERED: SPIR100T46 PO (18:50)
[2023-08-18 20:00] VITALS: BP 158/98; PULSE 84; RESP 20; TEMP 97.5; O2SAT 96
[2023-08-18] MEDS: HYDROcodone/APAP 7.5/325 MG 1 TAB PO PRN (21:00)
[2023-08-18 23:08] LABS: APPEARANCE,URINE CLEAR (CLEAR); BILIRUBIN,URINE 2+ (NEGATIVE); BLOOD, URINE NEGATIVE (NEGATIVE); COLOR,URINE YELLOW (YELLOW); LEUKOCYTE ESTERASE ,URINE NEGATIVE (NEGATIVE); NITRITE, URINE POSITIVE (NEGATIVE); PROTEIN,URINE TRACE (NEGATIVE); UGLUCOSE NEGATIVE (NEGATIVE)
[2023-08-18 23:09] LABS: ICTOTEST POSITIVE (NEGATIVE)
[2023-08-18 23:11] LABS: BACTERIA,URINE >30 (MANY) /HPF (None Seen); MUCUS,URINE 1+ /LPF (None Seen); RBC,URINE TOO NUMEROUS TO COUN /HPF (0-5); SQUAMOUS EPITHELIAL CELL,UR 0-3 (FEW) /LPF (0-3 (FEW)); WBC,URINE 0-5 /HPF (0-5)
[2023-08-18 23:20] LABS: AMPHETAMINE, URINE NEGATIVE ng/ml (NEG <=1000); BARBITURATE, URINE NEGATIVE ng/ml (NEG <=200); BENZODIAZEPINE, URINE NEGATIVE ng/mL (NEG <=200); CANNABINOID, URINE NEGATIVE ng/mL (NEG <=50); COCAINE, URINE POSITIVE ng/mL (NEG <=300); OPIATE, URINE NEGATIVE ng/mL (NEG <=2000); PHENCYCLIDINE SCREEN,URINE NEGATIVE ng/mL (NEG <=25)
[2023-08-19 04:17] VITALS: BP 138/82; PULSE 82; TEMP 97.1; O2SAT 96
[2023-08-19 07:07] LABS: BASOPHILS % (AUTO) 0.4 % (0.0-2.0); EOSINOPHILS # (AUTO) 0.1 K/uL (0-0.4); EOSINOPHILS % (AUTO) 2.6 % (0.0-4.0); HEMATOCRIT 28.9 % (36-52); HEMOGLOBIN 9.7 g/dL (12.0-18.0); LYMPHOCYTES # (AUTO) 0.3 K/uL (2.0-11.5); LYMPHOCYTES % (AUTO) 9.8 % (20.5-51.1); MEAN CORPUSCULAR HEMOGLOBIN 32 pg (27-31); MEAN CORPUSCULAR HGB CONC 34 g/dL (33-37); MONOCYTES # (AUTO) 0.4 K/uL (0.8-1.0); MONOCYTES % (AUTO) 14.2 % (1.7-9.3); NEUTROPHILS # (AUTO) 2.1 K/uL (1.8-7.7); RED BLOOD CELL COUNT(AUTO) 3.08 MIL/uL (4.20-6.10); RED CELL DISTRIBUTION WIDTH 17.3 % (11.6-13.7); WHITE BLOOD COUNT (AUTO) 2.9 K/uL (4.8-10.8)
[2023-08-19 07:09] LABS: PLATELET COUNT (AUTO) 17 K/uL (140-450)
[2023-08-19 07:23] LABS: ANION GAP 7.4 (8-16); CALCIUM 7.8 mg/dL (8.5-10.1); CARBON DIOXIDE 25.6 mmol/L (21-32); CREATININE 0.8 mg/dL (0.6-1.3)
[2023-08-19 08:00] VITALS: BP 147/99; PULSE 82; RESP 20; TEMP 97.6; O2SAT 96
[2023-08-19 09:06] LABS: T3 UPTAKE 35 % (24-39); T4 (THYROXINE) 10.4 ug/dL (4.5-12.0)
[2023-08-19] MEDS: PANTOPRAZOLE 40 MG TABEC PO SCH (09:20)
[2023-08-19] MEDS ORDERED: INSULIN LISPRO SLIDING SCALE 100 UNITS/ML VIAL SUBQ PRN (09:50)
[2023-08-19] MEDS: BLOOD GLUCOSE MONITORING 1 DEV DEV FS SCH ×3 (11:50→20:42)
[2023-08-19 16:00] VITALS: BP 136/95; PULSE 82; RESP 20; TEMP 97.5; O2SAT 97
[2023-08-19 20:00] VITALS: BP 143/87; PULSE 88; RESP 19; TEMP 97.9; O2SAT 95; O2SAT 96
[2023-08-20 04:00] VITALS: BP 136/87; PULSE 83; RESP 19; TEMP 98.5; O2SAT 97
[2023-08-20] MEDS: BLOOD GLUCOSE MONITORING 1 DEV DEV FS SCH ×4 (06:40→20:23)
[2023-08-20 08:00] VITALS: BP 147/90; PULSE 84; RESP 18; TEMP 97.5; O2SAT 97; O2SAT 98
[2023-08-20 09:39] LABS: BASOPHILS % (AUTO) 0.4 % (0.0-2.0); EOSINOPHILS # (AUTO) 0.1 K/uL (0-0.4); EOSINOPHILS % (AUTO) 2.2 % (0.0-4.0); HEMATOCRIT 31.2 % (36-52); HEMOGLOBIN 10.3 g/dL (12.0-18.0); LYMPHOCYTES # (AUTO) 0.2 K/uL (2.0-11.5); LYMPHOCYTES % (AUTO) 8.8 % (20.5-51.1); MEAN CORPUSCULAR HEMOGLOBIN 31 pg (27-31); MEAN CORPUSCULAR HGB CONC 33 g/dL (33-37); MEAN CORPUSCULAR VOLUME 93.9 fL (80-94); MONOCYTES # (AUTO) 0.3 K/uL (0.8-1.0); MONOCYTES % (AUTO) 10.6 % (1.7-9.3); NEUTROPHILS # (AUTO) 2.1 K/uL (1.8-7.7); PLATELET COUNT (AUTO) 26 K/uL (140-450); RED BLOOD CELL COUNT(AUTO) 3.32 MIL/uL (4.20-6.10); RED CELL DISTRIBUTION WIDTH 17.6 % (11.6-13.7); WHITE BLOOD COUNT (AUTO) 2.6 K/uL (4.8-10.8)
[2023-08-20 09:48] LABS: ANION GAP 5.5 (8-16); CARBON DIOXIDE 28.1 mmol/L (21-32); CREATININE 0.8 mg/dL (0.6-1.3); POTASSIUM 3.6 mmol/L (3.5-5.1)
[2023-08-20] MEDS: PANTOPRAZOLE 40 MG TABEC PO SCH (09:50)
[2023-08-20 16:00] VITALS: BP 128/73; PULSE 79; RESP 18; TEMP 97.9; O2SAT 97
[2023-08-20] MEDS: HYDROcodone/APAP 7.5/325 MG 1 TAB PO PRN ×2 (17:08→23:19)
[2023-08-20 20:00] VITALS: BP 145/88; PULSE 81; RESP 18; TEMP 97.1; O2SAT 98
[2023-08-20 21:25] LABS: HEMOGLOBIN A1C <4.2 % (4.8-5.6)
[2023-08-21 06:22] LABS: BASOPHILS % (AUTO) 0.4 % (0.0-2.0); EOSINOPHILS # (AUTO) 0.1 K/uL (0-0.4); EOSINOPHILS % (AUTO) 3.4 % (0.0-4.0); HEMATOCRIT 27.9 % (36-52); HEMOGLOBIN 9.5 g/dL (12.0-18.0); LYMPHOCYTES # (AUTO) 0.3 K/uL (2.0-11.5); LYMPHOCYTES % (AUTO) 10.7 % (20.5-51.1); MEAN CORPUSCULAR HEMOGLOBIN 32 pg (27-31); MEAN CORPUSCULAR HGB CONC 34 g/dL (33-37); MEAN CORPUSCULAR VOLUME 93.3 fL (80-94); MONOCYTES # (AUTO) 0.4 K/uL (0.8-1.0); MONOCYTES % (AUTO) 15.2 % (1.7-9.3); NEUTROPHILS # (AUTO) 1.9 K/uL (1.8-7.7); NEUTROPHILS % (AUTO) 70.3 % (42.2-75.2); RED CELL DISTRIBUTION WIDTH 17.5 % (11.6-13.7); WHITE BLOOD COUNT (AUTO) 2.7 K/uL (4.8-10.8)
[2023-08-21 06:37] LABS: ANION GAP 4.8 (8-16); CALCIUM 7.8 mg/dL (8.5-10.1); CARBON DIOXIDE 27.4 mmol/L (21-32); CREATININE 0.7 mg/dL (0.6-1.3); POTASSIUM 4.2 mmol/L (3.5-5.1)
[2023-08-21] MEDS: BLOOD GLUCOSE MONITORING 1 DEV DEV FS SCH ×4 (06:44→20:32)
[2023-08-21 06:47] LABS: PLATELET COUNT (AUTO) 17 K/uL (140-450)
[2023-08-21 08:00] VITALS: BP 140/87; PULSE 87; RESP 18; TEMP 97.2; O2SAT 96; O2SAT 98
[2023-08-21] MEDS: PANTOPRAZOLE 40 MG TABEC PO SCH (08:48)
[2023-08-21 16:00] VITALS: BP 137/87; PULSE 78; RESP 18; TEMP 98.5; O2SAT 98
[2023-08-21 20:00] VITALS: BP 144/92; PULSE 88; RESP 18; TEMP 98; O2SAT 94
[2023-08-21] MEDS: ZOLPIDEM 5 MG TAB PO PRN (22:01)
[2023-08-22] MEDS: HYDROcodone/APAP 7.5/325 MG 1 TAB PO PRN ×2 (01:40→23:12)
[2023-08-22 04:00] VITALS: BP 136/83; PULSE 84; RESP 20; TEMP 98.6; O2SAT 95
[2023-08-22 06:09] LABS: ANION GAP 6.6 (8-16); CALCIUM 7.7 mg/dL (8.5-10.1); CARBON DIOXIDE 26.3 mmol/L (21-32); CREATININE 0.7 mg/dL (0.6-1.3); POTASSIUM 3.9 mmol/L (3.5-5.1)
[2023-08-22] MEDS: BLOOD GLUCOSE MONITORING 1 DEV DEV FS SCH ×4 (06:37→20:18)
[2023-08-22 07:24] LABS: BASOPHILS % (AUTO) 0.7 % (0.0-2.0); EOSINOPHILS # (AUTO) 0.1 K/uL (0-0.4); HEMATOCRIT 27.6 % (36-52); HEMOGLOBIN 9.5 g/dL (12.0-18.0); LYMPHOCYTES # (AUTO) 0.3 K/uL (2.0-11.5); LYMPHOCYTES % (AUTO) 9.1 % (20.5-51.1); MEAN CORPUSCULAR HEMOGLOBIN 33 pg (27-31); MEAN CORPUSCULAR HGB CONC 34 g/dL (33-37); MEAN CORPUSCULAR VOLUME 94.8 fL (80-94); MONOCYTES # (AUTO) 0.3 K/uL (0.8-1.0); MONOCYTES % (AUTO) 11.2 % (1.7-9.3); NEUTROPHILS # (AUTO) 2.3 K/uL (1.8-7.7); PLATELET COUNT (AUTO) 36 K/uL (140-450); RED BLOOD CELL COUNT(AUTO) 2.91 MIL/uL (4.20-6.10); RED CELL DISTRIBUTION WIDTH 17.2 % (11.6-13.7); WHITE BLOOD COUNT (AUTO) 3.1 K/uL (4.8-10.8)
[2023-08-22 08:00] VITALS: BP 139/92; PULSE 85; RESP 18; TEMP 99.3; O2SAT 93
[2023-08-22] MEDS: PANTOPRAZOLE 40 MG TABEC PO SCH (08:42)
[2023-08-22 16:00] VITALS: BP 148/94; PULSE 89; RESP 18; TEMP 97.7; O2SAT 94
[2023-08-22 20:00] VITALS: BP 150/75; PULSE 81; RESP 17; TEMP 98.3; O2SAT 93; O2SAT 99
[2023-08-23 04:00] VITALS: BP 152/107; PULSE 85; RESP 20; TEMP 97.8; O2SAT 95
[2023-08-23] MEDS: BLOOD GLUCOSE MONITORING 1 DEV DEV FS SCH ×4 (07:00→22:02)
[2023-08-23 07:45] LABS: ANION GAP 5.5 (8-16); CALCIUM 7.9 mg/dL (8.5-10.1); CARBON DIOXIDE 27.7 mmol/L (21-32); CREATININE 0.8 mg/dL (0.6-1.3); POTASSIUM 4.2 mmol/L (3.5-5.1)
[2023-08-23 08:00] VITALS: PULSE 80; RESP 18; O2SAT 97
[2023-08-23] MEDS: PANTOPRAZOLE 40 MG TABEC PO SCH (08:16)
[2023-08-23 10:46] LABS: BASOPHILS % (AUTO) 0.4 % (0.0-2.0); EOSINOPHILS # (AUTO) 0.1 K/uL (0-0.4); EOSINOPHILS % (AUTO) 3.8 % (0.0-4.0); HEMATOCRIT 28.8 % (36-52); HEMOGLOBIN 9.5 g/dL (12.0-18.0); LYMPHOCYTES # (AUTO) 0.2 K/uL (2.0-11.5); LYMPHOCYTES % (AUTO) 9.7 % (20.5-51.1); MEAN CORPUSCULAR HEMOGLOBIN 31 pg (27-31); MEAN CORPUSCULAR HGB CONC 33 g/dL (33-37); MEAN CORPUSCULAR VOLUME 94.7 fL (80-94); MONOCYTES # (AUTO) 0.3 K/uL (0.8-1.0); MONOCYTES % (AUTO) 12.2 % (1.7-9.3); NEUTROPHILS # (AUTO) 1.8 K/uL (1.8-7.7); NEUTROPHILS % (AUTO) 73.9 % (42.2-75.2); RED BLOOD CELL COUNT(AUTO) 3.04 MIL/uL (4.20-6.10); RED CELL DISTRIBUTION WIDTH 17.6 % (11.6-13.7); WHITE BLOOD COUNT (AUTO) 2.4 K/uL (4.8-10.8)
[2023-08-23 10:55] LABS: PLATELET COUNT (AUTO) 14 K/uL (140-450)
[2023-08-23 15:20] VITALS: O2SAT 100
[2023-08-23 16:00] VITALS: BP 150/92; PULSE 68; RESP 18; TEMP 95.5; O2SAT 98
[2023-08-23] MEDS: FUROSEMIDE 40 MG/4 ML VIAL IVP SCH (17:37)
[2023-08-23 18:54] LABS: HEMATOCRIT 30.8 % (36-52); HEMOGLOBIN 10.2 g/dL (12.0-18.0); MEAN CORPUSCULAR HEMOGLOBIN 31 pg (27-31); MEAN CORPUSCULAR HGB CONC 33 g/dL (33-37); MEAN CORPUSCULAR VOLUME 94.7 fL (80-94); RED BLOOD CELL COUNT(AUTO) 3.25 MIL/uL (4.20-6.10); RED CELL DISTRIBUTION WIDTH 17.8 % (11.6-13.7); WHITE BLOOD COUNT (AUTO) 2.9 K/uL (4.8-10.8)
[2023-08-23 19:32] LABS: PLATELET COUNT (AUTO) 19 K/uL (140-450)
[2023-08-23 19:49] LABS: BASOPHILS % (MANUAL) 0 % (0-2); EOSINOPHILS % (MANUAL) 2 % (0-4); LYMPHOCYTES % (MANUAL) 15 % (20-46); MONOCYTES % (MANUAL) 4 % (5-12)
[2023-08-23 19:50] LABS: PLATELET ESTIMATE DECREASED
[2023-08-23 20:00] VITALS: PULSE 72; RESP 18; O2SAT 96
[2023-08-24] VITALS: BP 127/78; PULSE 72; RESP 18; TEMP 98.1; O2SAT 96
[2023-08-24] MEDS: ZOLPIDEM 5 MG TAB PO PRN (02:05)
[2023-08-24 06:08] LABS: ANION GAP 7.5 (8-16); CALCIUM 7.8 mg/dL (8.5-10.1); CREATININE 0.7 mg/dL (0.6-1.3); POTASSIUM 3.5 mmol/L (3.5-5.1)
[2023-08-24] MEDS: BLOOD GLUCOSE MONITORING 1 DEV DEV FS SCH (07:07)
[2023-08-24 08:00] VITALS: BP 148/75; PULSE 78; RESP 18; TEMP 97.5; O2SAT 96
[2023-08-24 08:10] LABS: HEMATOCRIT 26.5 % (36-52); HEMOGLOBIN 8.9 g/dL (12.0-18.0); MEAN CORPUSCULAR HEMOGLOBIN 31 pg (27-31); RED BLOOD CELL COUNT(AUTO) 2.85 MIL/uL (4.20-6.10); WHITE BLOOD COUNT (AUTO) 2.4 K/uL (4.8-10.8)
[2023-08-24 08:11] LABS: MEAN CORPUSCULAR HGB CONC 34 g/dL (33-37); PLATELET COUNT (AUTO) 20 K/uL (140-450); RED CELL DISTRIBUTION WIDTH 17.6 % (11.6-13.7)
[2023-08-24 08:12] LABS: BASOPHILS % (AUTO) 0.4 % (0.0-2.0); EOSINOPHILS # (AUTO) 0.1 K/uL (0-0.4); EOSINOPHILS % (AUTO) 2.8 % (0.0-4.0); LYMPHOCYTES # (AUTO) 0.2 K/uL (2.0-11.5); LYMPHOCYTES % (AUTO) 9.1 % (20.5-51.1); MONOCYTES # (AUTO) 0.3 K/uL (0.8-1.0); MONOCYTES % (AUTO) 12.2 % (1.7-9.3); NEUTROPHILS # (AUTO) 1.8 K/uL (1.8-7.7); NEUTROPHILS % (AUTO) 75.5 % (42.2-75.2)
[2023-08-24] MEDS: FUROSEMIDE 40 MG/4 ML VIAL IVP SCH (08:30)
[2023-08-24] MEDS: PANTOPRAZOLE 40 MG TABEC PO SCH (08:30)
[2023-08-24] MEDS ORDERED: SPIRONOLACTONE 50 MG TAB PO SCH (09:00)
[2023-08-24 10:10] LABS: INR 1.26 (0.8-1.2); PARTIAL THROMBOPLASTIN TIME 28.8 secs (22-35.6); PROTHROMBIN TIME 13.1 secs (10.8-13.4)
[2023-08-24 14:13] VITALS: BP 148/96; PULSE 78; RESP 18; TEMP 97.5
[2023-08-25] MEDS ORDERED: SPIRONOLACTONE 50 MG TAB PO SCH (09:00)
== END 2023-08-24 14:45 | disposition home or self-care (01) | DRG 280 ==
LOC: MED 14:49 → MMU 18:04 → MTU 18:46
PROVIDERS: ADMIT Family Medicine; ATTEND Family Medicine
PROC: 30233K1 Transfusion of Nonautologous Frozen Plasma into Peripheral Vein, Percutaneous Approach (ICD-10-PCS; principal; 2023-08-19)
PROC: 30233R1 Transfusion of Nonautologous Platelets into Peripheral Vein, Percutaneous Approach (ICD-10-PCS; 2023-08-21)
DX: K70.31 Alcoholic cirrhosis of liver with ascites (principal); D61.818 Other pancytopenia; E43 Unspecified severe protein-calorie malnutrition; K72.10 Chronic hepatic failure without coma; E86.0 Dehydration; D73.1 Hypersplenism; D64.9 Anemia, unspecified; N39.0 Urinary tract infection, site not specified; D75.839 Thrombocytosis, unspecified; F14.10 Cocaine abuse, uncomplicated; E83.42 Hypomagnesemia; B19.20 Unspecified viral hepatitis C without hepatic coma; Z79.899 Other long term (current) drug therapy; Z68.27 Body mass index [BMI] 27.0-27.9, adult
CPT/HCPCS: 36415; 36430; 76705; 80048; 80053; 80305; 81001; 82105; 82140; 82150; 82948; 83036; 83690; 83735; 83880; 84100; 84436; 84439; 84443; 84479; 84484; 85025; 85610; 85730; 86886; 86900; 86901; 87081; 93005; 99285; J1815; J1940; P9017; P9035; Q0092